=== PATIENT | male | born 1940 | race Caucasian/White ===

== ENCOUNTER 2017-02-28 12:21 | Inpatient (IN) | payer OTHER ==
[~2017-02-28] VITALS: Ht 177.8 cm; Wt 90.3 kg
[2017-02-28 12:59] LABS: ABSOLUTE BASOPHIL COUNT 0.1 /CUMM (0.0-0.2); ABSOLUTE EOSINOPHIL COUNT 0.2 /CUMM (0.0-0.7); ABSOLUTE GRANULOCYTE CT 4.1 /CUMM (1.4-6.5); ABSOLUTE MONOCYTE COUNT 0.5 /CUMM (0.10-0.60); GRANULOCYTE % 71.5 % (42.2-75.2); MEAN CORPUSCULAR HGB CONC 31.8 G/DL (33.0-37.0); MEAN PLATELET VOLUME 8.3 FL (7.4-10.4); PLATELET COUNT 263 /CUMM (130-400); RBC DISTRIBUTION WIDTH 19.4 % (11.5-14.5); RED BLOOD CELL CT 5.35 /CUMM (4.70-6.10); WHITE BLOOD CELL COUNT 5.8 /CUMM (4.8-10.8)
--- NOTE | 2017-02-28 15:59 | ED GENERAL ADULT ---
History of Present Illness General Chief Complaint: Dyspnea (COPD, CHF, Other) Stated Complaint: SOB/EDEMA X 2WEEKS/SENT BY PMD FOR ABNORMAL LABS Source: patient Exam Limitations: no limitations Vital Signs & Intake/Output Vital Signs & Intake/Output Vital Signs Date Time Temp Pulse Resp B/P B/P Pulse O2 O2 Flow FiO2 Mean Ox Delivery Rate 03/01 1126 Nasal 2.0L Cannula 03/01 1119 95 Nasal 2.0L Cannula 03/01 0800 97 Nasal 2.0L Cannula 03/01 0657 98.4 82 20 112/62 97 Nasal Cannula 03/01 0000 Nasal 2.0L Cannula 02/28 2200 95 Nasal 2.0L Cannula 02/28 2155 97.8 85 22 128/78 94 Nasal 2.0L Cannula 02/28 2128 97.9 69 16 136/79 98 Nasal 2.0L Cannula 02/28 1950 97.1 92 22 140/59 96 Nasal 2.0L Cannula 02/28 1628 88 Room Air 02/28 1609 96.5 101 18 170/89 93 Nasal 2.0L Cannula 02/28 1237 96.6 96 18 140/83 85 Room Air ED Intake and Output 03/01 0000 02/28 1200 Intake Total 460 Output Total 300 Balance 160 Intake, Oral 460 Output, Urine 300 Patient 202 lb Weight Allergies Coded Allergies: No Known Allergies (02/28/17) Triage Note: PT TO ER FOR EVAL OF ABNL CREATININE, BNP BY PCP. PER PATIENT HAS HAD WORSENING LOWER EXT EDEMA X 2 WEEKS. STATES SOB IS "BASELINE" FOR HIM. NO ACUTE SOB NOTED. RA SAT 85%. EKG COMPLETE. Triage Nurses Notes Reviewed? yes Onset: Gradual Duration: week(s): Timing: recent history Injury Environment: home Severity: moderate HPI: 76yo male with hx of CHF presents to ED complaining of dyspnea and pedal edema x weeks. Patient states that he is unable to sleep for the past several weeks which he believes unrelated to dyspnea. Patient has been taking Ambien for insomnia however states that this medication does not help. He went to see his primary care doctor for increased dose of Ambien and it was recommended by a RN at the office that he reported to the emergency department for abnormal labs that were taken as an outpatient. 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 He is currently on Lasix 80 mg twice a day. Patient reports improvement in the old edema recently. Patient denies chest pain, presyncope, syncope, headache, abdominal pain, nausea, vomiting, fevers. (Enriqueta Thomason) Past History Travel History Traveled to [place] past 21 day No Medical History Any Pertinent Medical History? see below for history Cardiovascular: CHF, hyperlipidemia Respiratory: COPD, PNEUMOTHROAX Musculoskeletal: gout Surgical History Surgical History: non-contributory Psychosocial History What is your primary language Bermudian Tobacco Use: Never used Family History Hx Contributory? No (Enriqueta Thomason) Review of Systems Review of Systems Constitutional: Reports: no symptoms. EENTM: Reports: no symptoms. Respiratory: Reports: see HPI. Cardiovascular: Reports: see HPI. GI: Reports: no symptoms. Genitourinary: Reports: no symptoms. Musculoskeletal: Reports: see HPI. Skin: Reports: no symptoms. Neurological/Psychological: Reports: see HPI. Hematologic/Endocrine: Reports: no symptoms. Immunologic/Allergic: Reports: no symptoms. All Other Systems: Reviewed and Negative (Enriqueta Thomason) Physical Exam Physical Exam General Appearance: well developed/nourished, no apparent distress, alert, awake Head: atraumatic, normal appearance Eyes: Bilateral: normal appearance. Ears, Nose, Throat: hearing grossly normal Neck: normal inspection, supple, full range of motion Respiratory: no respiratory distress, diminished breath sounds bilaterally Cardiovascular: regular rate/rhythm Peripheral Pulses: 2+ radial (R), 2+ radial (L) Gastrointestinal: normal bowel sounds, soft, non-tender, no organomegaly Back: normal inspection, normal range of motion Extremities: 3+ pitting edema bilateral lower extremities Neurologic/Psych: awake, alert, oriented x 3 Skin: intact, normal color, warm/dry Core Measures ACS in differential dx? Yes CVA/TIA Diagnosis: No Sepsis Present: No Sepsis Focused Exam Completed? No (Enriqueta Thomason) Progress Differential Diagnoses I considered the following diagnoses in my evaluation of the patient: [CHF exacerbation, COPD, pneumonia, bronchitis, influenza, edema, DVT, PE, acute coronary syndrome] Plan of Care: Orders Procedure Date/time Status Nothing by Mouth 03/01 B Active RT: Evaluation 03/01 1118 Active Nursing Misc 03/01 0800 Active Change service to 03/01 0736 Active PROTHROMBIN TIME 03/01 0600 Complete CBC WITHOUT DIFFERENTIAL 03/01 0600 Complete BASIC ELECTROLYTES PLUS BUN&CR 03/01 0600 Complete TROPONIN LEVEL 03/01 0300 Complete EKG 03/01 0300 Active US-EXT BILAT VENOUS DOPPLER 03/01 UNK Active US-COMPLETE ABDOMEN 03/01 UNK Active THERAPIST ORDERS 03/01 UNK Complete OXYGEN SETUP (GEN) 03/01 UNK Complete Admit to inpatient 03/01 UNK Active ECHOCARDIOGRAM 03/01 UNK Active Heart Healthy Diet 02/28 D Complete Pathway - chart 02/28 2201 Active House Staff 02/28 2200 Active Code Status 02/28 2200 Active TROPONIN LEVEL 02/28 213 Complete EKG 02/28 213 Active Vital Signs 02/29 2128 Active Teach/Educate 02/29 2128 Active Pain Treatment and Response 02/29 2128 Active Nutritional Intake, Monitor 02/29 2128 Active Isolation 02/29 2128 Active Intake & Output 02/29 2128 Active Patient Care Conference 02/29 2128 Active Activity/Ambulation 02/29 2128 Active Intake & Output 02/[address] in observation 02/29 2000 Active ED Holding Orders 02/29 2000 Active Vital Signs 02/29 2000 Active Patient Data 02/28 195 Active RAPID VIRAL INFLUENZA A 02/28 1814 Complete Add-on Test (ER Only) 02/28 1535 Active THYROID STIMULATING HORMONE 02/28 1246 Complete FREE T4 02/28 1246 Complete B-TYPE NATRIURETIC PEP (BNP) 02/28 1246 Complete TROPONIN LEVEL 02/28 1239 Complete COMPREHENSIVE METABOLIC PANEL 02/28 1239 Complete CBC WITHOUT DIFFERENTIAL 02/28 1239 Complete EKG 02/28 1224 Active TRC EVALUATION (GEN) 02/28 UNK Complete Lab Add-on Test 02/28 UNK Active Weight 02/28 UNK Active VTE Mechanical Prophylaxis 02/28 UNK Active Intake & Output 02/28 UNK Active Elevate 02/28 UNK Active Activity/Ambulation 02/28 UNK Active Current Medications Sig/Bridger Start time Last Medication Dose Stop Time Status Admin Albuterol Sulfate 3 ML BID 03/01 2200 AC 03/01 (Proventil) 1117 Ipratropium [place] 2.5 ML BID 03/01 2200 AC 03/01 (Atrovent) 1118 Atorvastatin Calcium 20 MG 1700 03/01 1700 AC (Lipitor) Potassium Chloride 40 MEQ BID 03/01 1053 AC (K-Dur) 03/01 220 Enoxaparin Sodium 40 MG DAILY 03/01 1000 CAN (Lovenox) Furosemide 40 MG 7:30 AM, & 4:30 PM 03/01 0730 AC 03/01 (Lasix) 0804 Levothyroxine Sodium 0.075 MG DAILY AC 03/01 0700 AC 03/01 (Synthroid) 0613 Budesonide/ 2 PUF BID 02/28 2199 AC 03/01 Formoterol Fumarate 0815 (SYMBICORT) Zolpidem Tartrate 5 MG AT BEDTIME 02/28 2199 AC 02/28 (Ambien) 232 Ipratropium [place] 2.5 ML Q6-PRN PRN 02/29 2144 AC (Atrovent) Trazodone HCl 50 MG AT BEDTIME NEED.. 02/29 2144 AC (Desyrel) Laboratory Tests 03/01/17 0400: Troponin I 0.06 03/01/17 0400: Anion Gap 13, Estimated GFR 59 L, BUN/Creatinine Ratio 25.8 H, PT 14.3 H, INR 1.37 H, CBC w Diff NO MAN DIFF REQ, RBC 4.89, MCV 87.1, MCH 27.9, RDW 18.8 H, MPV 8.5, Gran % 70.4, Lymphocytes % 15.2 L, Monocytes % 10.9 H, Eosinophils % 2.9, Basophils % 0.6, Absolute Granulocytes 3.7, Absolute Lymphocytes 0.8 L, Absolute Monocytes 0.6, Absolute Eosinophils 0.2, Absolute Basophils 0, PUBS MCHC 32.0 L 02/28/17 2210: Troponin I 0.06 02/28/17 1246: Anion Gap 11, Estimated GFR 45 L, BUN/Creatinine Ratio 22.7, Glucose 126 H, Calcium 9.5, Total Bilirubin 1.6 H, AST 31, ALT 31, Alkaline Phosphatase 109, Troponin I 0.05, Opo-V-Rjcsjeijali Pept 6730 H, Total Protein 6.8, Albumin 3.9, Globulin 2.9, Albumin/Globulin Ratio 1.3, TSH 3.350, Free T4 1.64, CBC w Diff NO MAN DIFF REQ, RBC 5.35, MCV 88.0, MCH 28.0, RDW 19.4 H, MPV 8.3, Gran % 71.5, Lymphocytes % 16.5 L, Monocytes % 8.0, Eosinophils % 3.0, Basophils % 1.0, Absolute Granulocytes 4.1, Absolute Lymphocytes 1.0 L, Absolute Monocytes 0.5, Absolute Eosinophils 0.2, Absolute Basophils 0.1, PUBS MCHC 31.8 L Microbiology 02/28 2029 NASOPHARYN: Influenza Virus A & B Rapid Smear - COMP CXR with mild pulmonary congestion. Patient with low O2 saturation ON room air, 87% while at rest. Patient likely with acute on chronic CHF. Patient medicated with 40 mg IV Lasix. This patient was discussed with case management. It was recommended to start his observation given his insurance. The patient was discussed with Dr. Vargas regarding telemetry observation. The patient was discussed with Dr. Slater who agrees with the plan. Diagnostic Imaging: Viewed by Me: Radiology Read. Discussed w/RAD: Radiology Read. CXR Impression: PATIENT: MONALISA ARENAS PRESENT AGE : 76 PATIENT ACCOUNT NO: [id number] : 39 LOCATION: [facility] ORDERING PHYSICIAN: Enriqueta OQUENDO SERVICE DATE: 02/28/17 EXAM TYPE: RAD - XRY-CHEST XRAY, TWO VIEWS EXAMINATION: XR CHEST, 2 VIEWS CLINICAL INFORMATION: Dyspnea. Elevated BNP. Assess for CHF, effusion. COMPARISON: None. TECHNIQUE: PA and lateral views of the chest were obtained. FINDINGS: Thoracic aorta is unremarkable. Mild pulmonary venous congestion. No pulmonary edema. There is distortion of the normal contour of the diaphragm with juxtaphrenic peaking, potentially due to chronic changes of COPD or pleural parenchymal scarring. Blunting of the posterior costophrenic sulci may be due to trace effusions are associated scarring. No large effusions. No pneumothorax. No focal consolidation. Mild degenerative disc disease present in the thoracic spine. There is mild degenerative arthritis in the acromioclavicular and glenohumeral joints. IMPRESSION: Borderline cardiomegaly with mild pulmonary venous congestion. No pulmonary edema. Flattened diaphragm with a distorted contour, potentially due to COPD or pleural parenchymal scarring. Blunting of the posterolateral costophrenic sulci could be due to trace effusions or chronic pleural parenchymal scarring. The latter is favored given the appearance of the remainder of the diaphragm. DICTATED BY: Jose Raul Ramos MD DATE/TIME DICTATED:1699 POWERHOUSE TENDER:MARCELLA DATE/TIME TRANSCRIBED:02/28/171699 CONFIDENTIAL, DO NOT COPY WITHOUT APPROPRIATE AUTHORIZATION. <Electronically signed in Other Vendor System> SIGNED BY: Jose Raul Ramos MD 02/28/171706 Initial ED EKG: sinus rhythm @77bpm, PVC, first degree AV block, nonspecific ST changes (Enriqueta Thomason) Departure Departure Disposition: STILL A PATIENT Condition: Stable Clinical Impression Primary Impression: Acute on chronic congestive heart failure Qualifiers: Congestive heart failure type: unspecified congestive heart failure type Qualified Code: I50.9 - Heart failure, unspecified Secondary Impressions: Dyspnea Qualifiers: Dyspnea type: dyspnea on exertion Qualified Code: R06.09 - Other forms of dyspnea Pedal edema Referrals: Adalberto Tafoya MD (PCP/Family) Departure Forms: Customer Survey General Discharge Information Observation Note Spoke With: aJy Vargas MD Physician Advisor Notified: DIANA HARRIS DO Place Patient In: Non-ED OBS Care Area Rationale for Observation: My rational for observation is as follows [acute on chronic congestive heart failure requiring IV Lasix, cardiology consult, telemetry monitoring, Trend labs and EKGs, premature discharge would be medically unsafe.]. (Enriqueta Thomason) PA/DEPUTY GENERAL COUNSEL Co-Sign Statement Statement: ED Attending supervision documentation- [X] I saw and evaluated the patient. I have also reviewed all the pertinent lab results and diagnostic results. I agree with the findings and the plan of care as documented in the PA's/DEPUTY GENERAL COUNSEL's documentation. [X] I have reviewed the ED Record and agree with the PA's/DEPUTY GENERAL COUNSEL's documentation. [] Additions or exceptions (if any) to the PAs/DEPUTY GENERAL COUNSEL's note and plan are summarized below: [] (Bryon EPPS,Almaz) Critical Care Note Critical Care Note Critical Care Time: non-applicable (Enriqueta Thomason)
--- NOTE | 2017-02-28 17:07 | RADIOLOGY REPORT ---
EXAMINATION: XR CHEST, 2 VIEWS CLINICAL INFORMATION: Dyspnea. Elevated BNP. Assess for CHF, effusion. COMPARISON: None. TECHNIQUE: PA and lateral views of the chest were obtained. FINDINGS: Thoracic aorta is unremarkable. Mild pulmonary venous congestion. No pulmonary edema. There is distortion of the normal contour of the diaphragm with juxtaphrenic peaking, potentially due to chronic changes of COPD or pleural parenchymal scarring. Blunting of the posterior costophrenic sulci may be due to trace effusions are associated scarring. No large effusions. No pneumothorax. No focal consolidation. Mild degenerative disc disease present in the thoracic spine. There is mild degenerative arthritis in the acromioclavicular and glenohumeral joints. IMPRESSION: Borderline cardiomegaly with mild pulmonary venous congestion. No pulmonary edema. Flattened diaphragm with a distorted contour, potentially due to COPD or pleural parenchymal scarring. Blunting of the posterolateral costophrenic sulci could be due to trace effusions or chronic pleural parenchymal scarring. The latter is favored given the appearance of the remainder of the diaphragm.
--- NOTE | 2017-02-28 21:29 | History & Physical ---
Jack EPPS,[facility] 02/28/178: General Information and HPI MD Statement: I have seen and personally examined MONALISA ARENAS and documented this H&P. The patient is a 76 year old M who presented with a patient stated chief complaint of [worsening leg edema]. Source of Information: patient Exam Limitations: no limitations History of Present Illness: Mr. Arenas is a 76-year-old gentleman with past medical history significant for CHF, COPD(not on home oxygen), gout, hyperlipidemia, hypothyroidism and lung tumor status post resection(in 1999) was sent in by his PCP for worsening leg edema and abnormal lab results. According to the patient, he has had bilateral lower extremity edema(limited to the ankles) with past couple of years for which she has been taking Lasix. 3 weeks ago he noticed worsening and spreading of his lower extremity edema up his legs up to the pelvic area and abdomen. Dr. Tafoya, increased the dose of Lasix from 1 to 3 tablets twice a day (unsure about the dose) with some improvement in the edema. He went to see his to his PCP today to refill Ambien that he takes for insomnia, blood workup was done at the office and he was told to come to the ER course of increased BNP, concerning for CHF exacerbation. The patient has baseline shortness of breath and has very limited baseline activity, denies any worsening shortness of breath, chest pain palpitations, orthopnea, PND, weight gain, or any recent change in medication other than Lasix. He does not follow up with any government professor or emr trainer. States he had some stress test done 6 months ago suggested by his PCP. Allergies/Medications Allergies: Coded Allergies: No Known Allergies (02/28/17) Past History Travel History Traveled to [place] past 21 day No Medical History Cardiovascular: CHF, hyperlipidemia Respiratory: COPD, PNEUMOTHROAX Musculoskeletal: gout Endocrine: hypothyroidism Surgical History Surgical History: Lung Tumor resection(1999) Past Family/Social History Psychosocial History Where do you live? Home Who Do You Live With? self Services at Home: None Smoking Status: Former Smoker ETOH Use: occasional use Illicit Drug Use: denies illicit drug use Functional Ability ADLs Independent: dressing, eating, toileting, bathing. Ambulation: independent IADLs Independent: shopping, housework, finances, food prep, telephone, transportation , medication admin. Review of Systems Review of Systems Constitutional: Reports: no symptoms. EENTM: Reports: no symptoms. Cardiovascular: Reports: peripheral edema. Respiratory: Reports: short of breath. GI: Reports: no symptoms. Genitourinary: Reports: no symptoms. Musculoskeletal: Reports: no symptoms. Skin: Reports: no symptoms. Neurological/Psychological: Reports: no symptoms. Hematologic/Endocrine: Reports: no symptoms. Immunologic/Allergic: Reports: no symptoms. All Other Systems: Reviewed and Negative Exam & Diagnostic Data Last 24 Hrs of Vital Signs/I&O Vital Signs Date Time Temp Pulse Resp B/P B/P Pulse O2 O2 Flow FiO2 Mean Ox Delivery Rate 03/01 0000 Nasal 2.0L Cannula 02/28 2200 95 Nasal 2.0L Cannula 02/28 2155 97.8 85 22 128/78 94 Nasal 2.0L Cannula 02/28 2128 97.9 69 16 136/79 98 Nasal 2.0L Cannula 02/28 1950 97.1 92 22 140/59 96 Nasal 2.0L Cannula 02/28 1628 88 Room Air 02/28 1609 96.5 101 18 170/89 93 Nasal 2.0L Cannula 02/28 1237 96.6 96 18 140/83 85 Room Air Intake & Output 03/01 0800 03/01 0000 02/28 1600 Intake Total 460 Output Total 300 Balance 160 Intake, Oral 460 Output, Urine 300 Patient 202 lb 202 lb Weight Physical Exam General Appearance Alert, Oriented X3, Cooperative, No Acute Distress Skin No Rashes, No Breakdown HEENT Atraumatic, PERRLA, EOMI Neck Supple, No JVD, No thryomegaly Cardiovascular Regular Rate, Normal S1, Normal S2, No Murmurs Lungs Clear to Auscultation, decreased air movement bilaterally Abdomen Normal Bowel Sounds, Soft, No Tenderness, distended, pitting edema in pelvic area Neurological Normal Speech, Strength at 5/5 X4 Ext, Normal Tone, Sensation Intact Extremities No Clubbing, No Cyanosis, Normal Pulses, +2 pitting edema bialterally extending up the legs upto pelvic and lower abdominal area Last 24 Hrs of Labs/Manuel: Laboratory Tests 02/28/17 2210: Troponin I 0.06 02/28/17 1246: Anion Gap 11, Estimated GFR 45 L, BUN/Creatinine Ratio 22.7, Glucose 126 H, Calcium 9.5, Total Bilirubin 1.6 H, AST 31, ALT 31, Alkaline Phosphatase 109, Troponin I 0.05, Nxm-D-Muzstjntcle Pept 6730 H, Total Protein 6.8, Albumin 3.9, Globulin 2.9, Albumin/Globulin Ratio 1.3, TSH 3.350, Free T4 1.64, CBC w Diff NO MAN DIFF REQ, RBC 5.35, MCV 88.0, MCH 28.0, RDW 19.4 H, MPV 8.3, Gran % 71.5, Lymphocytes % 16.5 L, Monocytes % 8.0, Eosinophils % 3.0, Basophils % 1.0, Absolute Granulocytes 4.1, Absolute Lymphocytes 1.0 L, Absolute Monocytes 0.5, Absolute Eosinophils 0.2, Absolute Basophils 0.1, PUBS MCHC 31.8 L Microbiology 02/28 2029 NASOPHARYN: Influenza Virus A & B Rapid Smear - COMP Diagnostic Data EKG Results Normal sinus rhythm with first-degree AV block and right bundle branch block, notched P-waves. Heart rate 93 QTC 498 CXR Results IMPRESSION: Borderline cardiomegaly with mild pulmonary venous congestion. No pulmonary edema. Flattened diaphragm with a distorted contour, potentially due to COPD or pleural parenchymal scarring. Blunting of the posterolateral costophrenic sulci could be due to trace effusions or chronic pleural parenchymal scarring. The latter is favored given the appearance of the remainder of the diaphragm. Other Results CT CHEST WO IV CONTRAST IMPRESSION: 1. No acute abnormality. 2. Severe henley emphysematous changes of lungs. 3. Small dependent left pleural effusion. 4. Cirrhosis of liver with abdominal ascites. Assessment/Plan Assessment: Mr. Arenas is a 76-year-old gentleman with past medical history significant for CHF, COPD(not on home oxygen), gout, hyperlipidemia, hypothyroidism and lung tumor status post resection(in 1999) was sent in by his PCP for worsening leg edema and abnormal lab results. A/P; 1. Suspected Rigth sided Heart Failure; - We will Observe the patient on telemetry floor for 24-48 hours. - Start on IV Lasix 40 mg twice a day. - Strict I's and O's - Daily weights - Cardiology consult. - Initial troponins and EKG were negative. Trops and EKG 2 to rule out ACS. - Bilateral lower extremity Doppler to rule out DVT 2. COPD exacerbation -Patient has baseline exertional shortness of breath, does not follow-up with any emr trainer and only uses Spiriva inhaler 1 puff per day prescribed by his PCP. - CT without contrast Severe henley emphysematous changes of lungs and Small dependent left pleural effusion. - Pulmonology consult - [facility] nebs - Supplemental oxygen as needed 3. Cirrhosis of liver with abdominal ascites; found on chest CT. - Total bilirubin is elevated to 1.6. - GI consult 4. Hypothyroidism - Continue levothyroxine 75 MCG daily - Follow TSH and free T4 levels 5. Gout and hyperlipidemia - Continue home medications. DVT prophylaxis; subcutaneous Lovenox Patient is full code As Ranked By This Provider Problem List: 1. Acute on chronic congestive heart failure Qualifiers Congestive heart failure type: unspecified congestive heart failure type Qualified Code: I50.9 - Heart failure, unspecified 2. Dyspnea Qualifiers Dyspnea type: dyspnea on exertion Qualified Code: R06.09 - Other forms of dyspnea 3. Pedal edema Core Measures/Misc (10/30) Acute Coronary Syndrome ACS Diagnosis: No Congestive Heart Failure Congestive Heart Failure Diagnosis No Cerebrovascular Accident CVA/TIA Diagnosis: No VTE (View Protocol) VTE Risk Factors Age>40 No Mechanical VTE Prophylaxis d/t N/A MechProphylax Ordered No VTE Pharm Prophylaxis d/t NA PharmProphylax ordered Sepsis (View protocol) Sepsis Present: No Adrian Cintron 02/28/17 2158: Resident Review Statement Resident Statement: examined this patient, discussed with music industry intern, agreed with music industry intern, discussed with family, reviewed EMR data (avail), discussed with nursing , discussed with case mgmt, reviewed images, amended to note Other Findings: 76-year-old gentleman former heavy smoker ( 60 PPD; quit 2018 years ago) was sent in by his PCP for abnormal labs ( elevated ProBNP and Cr). Past medical history: Lung cancer status post lobectomy in 1999, history of chronic bilateral lower extremity swelling on Lasix, hyperlipidemia, and insomnia. Patient has history of chronic bilateral leg swelling on Lasix (60 mg by mouth twice a day), which was increased to 80 mg twice a day, about 3 weeks ago due to increasing bilateral swelling that progress to his genitalia and lower abdomen which was not coupled with chest pain, palpitation. After increasing dose of Lasix swelling of bilateral lower extremity decreased. Yesterday, patient followed up with his PCP office for management of his insomnia, when he was told about his abnormal lab findings and he was recommended to come to the emergency room. Of note, patient has a long standing history of shortness of breath. Lives alone, and due to his shortness of breath has limited his physical activity. According to patient shortness of breath has deteriorated over the past few years but there has been no sudden no change. Patient denies any: Recent weight gain, orthopnea, increasing number of pillow, lightheadedness, dizziness. Vital signs are stable; initially in the triads patient was saturating 85% in room air which was corrected by 2 L of nasal cannula. Review of system: HPI; except for his insomnia he has no other new complaints/ concerns. Physical exam: GA: Mild distress; head and neck: Mucous membranes are moist, ?? JVD; heart: S1-S2 no murmur; abdomen is soft; bilateral lower extremity edema involving scrotum up to level of umbilicus. Labs: Sodium 148, potassium 3.8, bicarbonate 40, BUN 34, creatinine 1.5. Bilirubin 1.5, LFTs within normal limits ProBNP 6730 Chest x-ray: Flattening of the diaphragmatic and blunting of the costophrenic angle. CT scan of the chest without IV contrast: 1. No acute abnormality.2. Severe henley emphysematous changes of lungs. 3. Small dependent left pleural effusion. 4. Cirrhosis of liver with abdominal ascites. Assessment and plan 76-year-old gentleman with significant smoking history indicated of severe COPD/ right heart failure and chronic leg swelling was admitted for assessment of his bilateral edema. List of active problems #1 dyspnea on exertion and hypoxic respiratory failure. #2 henley emphysematous changes of lungs #3 chronic renal function impairment #4 hypothyroidism #5 elevated Bili and newly diagnosed cirrhosis in CT w/ ascites Plan * Admit to telemetry for continuous heart monitoring * Obtain echo in the a.m. * Strict ins and outs; less than 2 g a day sodium * Daily weights * Leg elevation * IV Lasix 40 mg twice a day * Trending troponin and EKG rule out ACS at 9 PM and 3 AM * Check TSH and free T4 * Continue home dose of levothyroxine * Continue home dose of simvastatin * Obtain echo in the a.m. * Obtain cardiology consult in the a.m. * Obtain CT scan of the chest without IV contrast assessing for restrictive and obstructive pulmonary disease pleural effusion and alveolar edema * TRC Neb [id number] as needed * Oxygen set up titrated 90-92% O2 sats * Symbicort 2 puffs twice a day * Ambien 5 mg at bedtime for insomnia * Trazodone 50 mg at bedtime for insomnia * Obtain pulmonology consult in the a.m. * Obtain abdominal ultrasound in the a.m.-assessment of ascites * Obtain GI consult in the am * Possible diagnostic paracentesis * NPO Full code ALPS- anticipation for paracentesis Housekeeping orders Jay Vargas 03/01/17 0452: Attending MD Review Statement Attending Statement Attending MD Statement: examined this patient, discuss w/resident/PA/REPRODUCTION PRODUCTION MANAGER, agreed w/resident/PA/REPRODUCTION PRODUCTION MANAGER, reviewed EMR data (avail), reviewed images, amended to note Attending Assessment/Plan: Cc: leg swelling, abnormal labs PMH: CHF, HLD, COPD, gout, hypothyroidism, right ? Lobectomy Patient was sent from primary care office for abnormal labs. Patient's main concern is not being able to sleep, he is been having this insomnia since last couple of years, tried different medications including OTC meds, described Ambien without much relief. Patient states that he just keeps tossing and turning in the bed and cannot sleep and sees watch every 2 hours. His daily activity has been limited since "a while" because of dyspnea on exertion. He is cautious and limited in his activities, he also started to notice bilateral lower extremity swelling since last 2 years, but worsened since last month or so , his Lasix dose was increased, the swelling improved but did not completely resolve. Patient denies any PND or orthopnea but unable to assess as he does not sleep. Currently he denies shortness of breath at rest but has been getting progressively more and more dyspnea on exertion. Denies any chest pain, palpitations, lost significant amount of weight after increasing the Lasix dose. He was being reevaluated today and primary care's office where he was found to have persistently elevated creatinine, increased leg swelling so was suggested to go to ER. Vitals: T 96.6, pulse 96, RR 18, blood pressure 140/83, saturating 85% on room air improved to 93% on 2 L nasal cannula. On exam: A O 3, cooperative, no acute distress, neck supple, JVD ? Distended but difficult to assess, no lymphadenopathy, mucosa moist, no focal neurological deficit, +2 edema bilateral lower extremity, scrotal edema, no obvious skin rashes or inflammation CVS: S1-S2, RRR. RS: Markedly decrease in air entry, no obvious wheezing or crackles. Abdomen: Soft, NT, ND, bowel sounds present. Labs: WBC 5.8K, hemoglobin 14.9, hematocrit 47.0, platelet 263, sodium 148, potassium 3.8, chloride 97, bicarbonate 40, BUN 34, creatinine 1.5, glucose 126, calcium 9.5, bilirubin 1.6, LFT unremarkable, troponin 0.05, BNP 6730, rapid influenza negative CXR: Borderline cardiomegaly with mild pulmonary venous congestion. No pulmonary edema. Flattened diaphragm with a distorted contour, potentially due to COPD or pleural parenchymal scarring. Blunting of the posterolateral costophrenic sulci could be due to trace effusions or chronic pleural parenchymal scarring. The latter is favored given the appearance of the remainder of the diaphragm. Assessment and plan 76-year-old male with past medical history significant for ?CHF, HLD, COPD, gout , hypothyroidism, right ?Lobectomy presented in ER for abnormal labs done in primary care physician's office and persistent lower extremity swelling. Patient has been getting progressive worsening of dyspnea on exertion but denies any shortness of breath at rest, no PND or orthopnea, his Lasix dose was increased during last 1 month which actually helped in his legs swelling, he lost 6 pounds of weight. Other than dyspnea on exertion and leg swelling patient has main concern of insomnia which is difficult to address. He may have mildly distended JVD, significant leg edema, and markedly decreased air entry bilaterally without any obvious wheezing or crackles. He was significantly desaturating to 85% on room air while in ER without much symptoms. It is possible that patient may have worsening COPD causing hypoxia and right-sided heart failure. But his extensive medical problems and smoking history left-sided heart failure should be ruled out. He may have chronic kidney disease as his creatinine is around the same value since a month or so, previous available was in 2013 which is 1.3. His sodium also appears chronically elevated, has elevated bicarbonate since long, probably either secondary to volume contraction with Lasix or compensation for his COPD CO2 retention. + COPD exacerbation + Suspected heart failure + History of HLD, COPD, gout, hypothyroidism, right ? Lobectomy - Place in observation on telemetry - Continuous telemetry monitoring - Try to wean off oxygen - IV Lasix 40 mg twice a day - Strict I's and O's - Daily weights - Serial troponin and EKGs - 2-D echo in a.m. - Cardiology consult in a.m. - DVT prophylaxis - TRC nebs - Pulmonology consult - CT chest without contrast - Obtain records from PCP office - Check TSH
[2017-02-28 21:55] VITALS: BP 128/78
--- NOTE | 2017-02-28 22:59 | CT SCAN REPORT ---
EXAMINATION: CT CHEST WITHOUT CONTRAST CLINICAL INFORMATION: No destructive lung disease. COPD. CHF. Shortness of breath. COMPARISON: Chest x-ray 02/28/2017 TECHNIQUE: Multidetector volumetric CT imaging of the chest was done. Axial MIP volume rendering provided. Sagittal and coronal reformatted images were obtained. DLP: 326.02 mGy-cm FINDINGS: LUNGS: Severe henley emphysematous changes of lung. No infiltrate. Central bronchial airways are open. MEDIASTINUM: There are vascular wall calcifications of aorta. No aneurysm of the aorta. No mediastinal mass or significant lymphadenopathy. No pericardial effusion. PLEURA: Small dependent left pleural effusion. AXILLA: No lymphadenopathy. UPPER ABDOMEN: Cirrhosis of liver. There is a small volume of abdominal ascites at the upper abdomen. Fatty atrophy of the pancreas. The adrenal glands are normal. OSSEOUS STRUCTURES: Degenerative spondylosis of spine with multilevel endplate spurring of the vertebrae. IMPRESSION: 1. No acute abnormality. 2. Severe henley emphysematous changes of lungs. 3. Small dependent left pleural effusion. 4. Cirrhosis of liver with abdominal ascites.
[2017-03-01 04:49] LABS: ABSOLUTE BASOPHIL COUNT 0 /CUMM (0.0-0.2); ABSOLUTE EOSINOPHIL COUNT 0.2 /CUMM (0.0-0.7); ABSOLUTE GRANULOCYTE CT 3.7 /CUMM (1.4-6.5); ABSOLUTE LYMPH COUNT 0.8 /CUMM (1.2-3.4); ABSOLUTE MONOCYTE COUNT 0.6 /CUMM (0.10-0.60); BASOPHIL % 0.6 % (0.0-2.0); EOSINOPHIL % 2.9 % (0-5); GRANULOCYTE % 70.4 % (42.2-75.2); HEMATOCRIT 42.6 % (42-52); MEAN CORPUSCULAR HGB 27.9 PG (27.0-31.0); MEAN CORPUSCULAR VOLUME 87.1 FL (80.0-94.0); MEAN PLATELET VOLUME 8.5 FL (7.4-10.4); PLATELET COUNT 250 /CUMM (130-400); RBC DISTRIBUTION WIDTH 18.8 % (11.5-14.5); RED BLOOD CELL CT 4.89 /CUMM (4.70-6.10); WHITE BLOOD CELL COUNT 5.3 /CUMM (4.8-10.8)
[2017-03-01 04:54] LABS: PT 14.3 SEC (9.4-12.5)
[2017-03-01 06:57] VITALS: BP 112/62
--- NOTE | 2017-03-01 07:32 | PN- Housestaff ---
Iza Valentine 03/01/17 0732: Subjective Follow-up For: Worsening lower extremity edema Hepatic cirrhosis/ascites Suspected CHF exacerbation Complaints: no complaints Tele-Events Since Last Visit: No significant telemetry events Subjective: Patient was seen and examined this morning. He was lying comfortably without any significant complaints. He has bilateral lower extremity edema which he is admitting that admits and therefore couple of weeks for which his home dose of Lasix was increased from 1 tablet daily to 6 tablets daily by his PCP. He remained hemodynamically stable but requiring supplemental oxygen to keep oxygen saturation more than 90%. Review of Systems Constitutional: Denies: chills, diaphoresis, fever. EENTM: Denies: blurred vision, visual changes. Cardiovascular: Denies: chest pain, edema, orthopena. Respiratory: Reports: short of breath. Gastrointestinal: Denies: constipation, diarrhea. Genitourinary: Denies: dysuria, frequency. Musculoskeletal: Denies: gout, joint pain. Skin: Reports: see HPI. Objective Last 24 Hrs of Vital Signs/I&O Vital Signs Date Time Temp Pulse Resp B/P B/P Pulse O2 O2 Flow FiO2 Mean Ox Delivery Rate 03/01 1126 Nasal 2.0L Cannula 03/01 1119 95 Nasal 2.0L Cannula 03/01 0800 97 Nasal 2.0L Cannula 03/01 0657 98.4 82 20 112/62 97 Nasal Cannula 03/01 0000 Nasal 2.0L Cannula 02/28 2200 95 Nasal 2.0L Cannula 02/28 2155 97.8 85 22 128/78 94 Nasal 2.0L Cannula 02/28 2128 97.9 69 16 136/79 98 Nasal 2.0L Cannula 02/28 1950 97.1 92 22 140/59 96 Nasal 2.0L Cannula 02/28 1628 88 Room Air 02/28 1609 96.5 101 18 170/89 93 Nasal 2.0L Cannula Intake & Output 03/01 1600 03/01 0800 03/01 0000 Intake Total 480 460 Output Total 875 300 Balance -395 160 Intake, Oral 480 460 Number 0 Bowel Movements Output, Urine 875 300 Patient 202 lb Weight Physical Exam General Appearance: Alert, Oriented X3, Cooperative, No Acute Distress Cardiovascular: Regular Rate, Normal S1, Normal S2 Lungs: Normal Air Movement Abdomen: Soft, No Tenderness, No Hepatospenomegaly Neurological: Normal Speech, Strength at 5/5 X4 Ext, Normal Tone Current Medications: Current Medications Sig/Bridger Start time Last Medication Dose Route Stop Time Status Admin Albuterol Sulfate 3 ML BID 03/01 2200 03/01 INH 1117 Albuterol Sulfate 2 PUF Q4 02/28 220 ME 03/01 INH 0415 Aspirin 81 MG DAILY 02/28 214 ME 02/28 PO 2322 Atorvastatin Calcium 20 MG 1700 03/01 1700 AC PO Budesonide/ 2 PUF BID 02/28 220 03/01 Formoterol Fumarate INH 0815 Enoxaparin Sodium 40 MG DAILY 03/01 1000 CAN SC Furosemide 40 MG 7:30 AM, & 4:30 PM 03/01 0730 DC 03/01 IV 0804 Furosemide 40 MG ONCE ONE 02/29 2144 ME 02/28 IV 02/28 2145 232 Furosemide 0 .STK-MED ONE 02/28 1846 DC IV Furosemide 40 MG ONCE ONE 02/28 1830 ME 02/28 IV 02/28 1831 1930 Ipratropium [place] 2.5 ML BID 03/01 2199 03/01 INH 1118 Ipratropium [place] 2.5 ML Q6-PRN PRN 02/29 2144 AC INH Levothyroxine Sodium 0.075 MG DAILY AC 03/01 0700 03/01 PO 0613 Potassium Chloride 40 MEQ BID 03/01 1053 AC PO 03/01 220 Trazodone HCl 50 MG AT BEDTIME NEED.. 02/29 2144 PO Zolpidem Tartrate 5 MG AT BEDTIME 02/28 2199 02/28 PO 2322 Last 24 Hrs of Lab/Manuel Results Last 24 Hrs of Labs/Mics: Laboratory Tests 03/01/17 0400: Troponin I 0.06 03/01/17 0400: Anion Gap 13, Estimated GFR 59 L, BUN/Creatinine Ratio 25.8 H, PT 14.3 H, INR 1.37 H, CBC w Diff NO MAN DIFF REQ, RBC 4.89, MCV 87.1, MCH 27.9, RDW 18.8 H, MPV 8.5, Gran % 70.4, Lymphocytes % 15.2 L, Monocytes % 10.9 H, Eosinophils % 2.9, Basophils % 0.6, Absolute Granulocytes 3.7, Absolute Lymphocytes 0.8 L, Absolute Monocytes 0.6, Absolute Eosinophils 0.2, Absolute Basophils 0, PUBS MCHC 32.0 L 02/28/17 2210: Troponin I 0.06 Microbiology 02/28 2029 NASOPHARYN: Influenza Virus A & B Rapid Smear - COMP Assessment/Plan Assessment: Patient is 76 year old gentleman with past medical history significant for congestive heart failure, COPD not on home oxygen, history of gout and hyperlipidemia, hypothyroidism and lung tumor status post resection in 1999 came in with chief complaint of worsening lower extremity edema and abnormal labs most likely hypernatremia and hypokalemia. Patient was admitted on telemetry floor and we will address following problems. Problem #1 worsening bilateral lower extremity edema which could be multifactorial due to his underlying CHF and also his hepatic cirrhosis might be playing a role. * Cardiology consultation was placed and appreciated * We will do echocardiogram and patient to check for the ejection fraction, any valvular abnormality or any wall motion abnormalities. * Given his hypernatremia which could be due to high dose of Lasix at home we would hold on further IV diuresis and will wait for the echocardiogram results and will resume if needed or we might change it to Aldactone given hypokalemia. * Supplemental oxygen to keep oxygen saturation more than 90% * Bilateral lower extremity Doppler ultrasound is pending to rule out DVT . Problem #2 history of COPD and lung tumor status post right ?lobectomy. * We'll continue supplemental oxygen Problem #3 chronic issues, hyperlipidemia, gout, hypothyroidism and insomnia * We will continue his home medications Problem #4 liver cirrhosis and ascites on CT abdomen * We will wait for GI evaluation. We will check hepatitis panel given his cirrhosis and ascites. He has remote history of alcohol abuse but has not drank in last more than 30 years. * Results of right upper quadrant ultrasound is still pending. Problem List: 1. Acute on chronic congestive heart failure 2. Dyspnea 3. Bilateral lower extremity edema Pain Ratin Pain Location: na Pain Goal: Remain pain free Pain Plan: tylenol Tomorrow's Labs & Rationales: cbc and bep Nicole EPPS,Nahid 03/01/17 1606: Attending Review Statement Attending Statement Attending Statement: examined this patient, discuss w/resident/[facility], agreed w/resident/[facility], reviewed EMR data (avail), discussed with nursing, discussed with case mgmt, amended to note Attending Assessment/Plan: Patient seen and examined. Resting comfortably and not in acute distress. Patient reports she was sent in for evaluation by his primary care provider due to abnormal lab values. He was noted to be hyponatremic on presentation. According to the patient has been having progressively worsening leg swelling despite escalating dose of Lasix at home. Lower extremity Dopplers were obtained here revealed deep vein thrombosis. He does admit to shortness of breath but states that it is chronic and unchanged. Echocardiogram done today shows normal ejection fraction. He does have elevated pulmonary pressures. He also has severe right ventricular systolic dysfunction. Right upper quadrant sonogram shows hepatic echotexture suggestive of chronic hepatocellular disease consistent with cirrhosis. Problems: 1. Worsening lower extremity swelling secondary to deep vein thrombosis. 2. Heart failure with preserved ejection fraction. 3. Hypernatremia; probably secondary to overdiuresis from Lasix 4. COPD; no evidence of broncho-spasm present. Plan: -Begin full dose anticoagulation therapy with Lovenox. -Recommend holding Lasix for now and reevaluating serum chemistry tomorrow before proceeding. His lower extremity swelling appears to be secondary to his deep vein thrombosis. Respiratory status is stable, to the patient. Chest x- ray shows no evidence of pulmonary edema. -Continue bronchodilator therapy. No need for systemic steroid therapy at present.
--- NOTE | 2017-03-01 10:41 | Cons- Cardiology ---
General Information and HPI Consulting Request Date of Consult: 03/01/17 Requested By: Nahid Rivera MD Reason for Consult: Lower extremity edema Source of Information: patient, old records Exam Limitations: no limitations History of Present Illness: The patient is a 76-year-old gentleman with a past medical history of COPD, hyperlipidemia, hypothyroidism, prior lung tumor (resected in 1999) and questionable CHF (unclear type). He presents to our hospital with increasing lower extremity edema. The patient states noting increasing pedal edema confined to his ankles over the past several years. He has been placed on low-dose outpatient diuretics; however, over the past 4 weeks noted a significant increase in his lower extremity edema, proceeding to his thighs. There has been no concurrent chest pain nor palpitations. He describes mild exertional dyspnea, and describes performing approximately 4 METs of regular activity; however, without regular exercise. The patient otherwise denied recent changes in his dietary intake or medication regimen. Given the significant increase in pedal edema, the patient's dose of diuretic was increased; however, without significant improvement. Allergies/Medications Allergies: Coded Allergies: No Known Allergies (02/28/17) Current Medications: Current Medications Sig/Bridger Start time Last Medication Dose Route Stop Time Status Admin Albuterol Sulfate 2 PUF Q4 02/28 2200 03/01 INH 0415 Aspirin 81 MG DAILY 02/28 214 DC 02/28 PO 2322 Atorvastatin Calcium 20 MG 1700 03/01 1700 AC PO Budesonide/ 2 PUF BID 02/28 2200 03/01 Formoterol Fumarate INH 0815 Enoxaparin Sodium 40 MG DAILY 03/01 1000 CAN SC Furosemide 40 MG 7:30 AM, & 4:30 PM 03/01 0730 03/01 IV 0804 Furosemide 40 MG ONCE ONE 02/29 2144 DC 02/28 IV 02/28 214 2322 Furosemide 0 .STK-MED ONE 02/28 1846 DC IV Furosemide 40 MG ONCE ONE 02/28 1830 DC 02/28 IV 02/28 1831 1930 Ipratropium [place] 2.5 ML Q6-PRN PRN 02/29 2144 AC INH Levothyroxine Sodium 0.075 MG DAILY AC 03/01 0700 03/01 PO 0613 Trazodone HCl 50 MG AT BEDTIME NEED.. 01/16 2145 AC PO Zolpidem Tartrate 5 MG AT BEDTIME 02/28 2200 AC 02/28 PO 2322 Review of Systems Review of Systems: The review of systems is negative for chest pains, palpitations nor lightheadedness. The remainder of the 14 point review of systems is noncontributory with the exception of above. 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 Home Who Do You Live With? self Services at Home: None Smoking Status: Former Smoker ETOH Use: occasional use Illicit Drug Use: denies illicit drug use Functional Ability ADLs Independent: dressing, eating, toileting, bathing. Ambulation: independent IADLs Independent: shopping, housework, finances, food prep, telephone, transportation , medication admin. Exam & Diagnostic Data Vital Signs and I&O Vital Signs Date Time Temp Pulse Resp B/P B/P Pulse O2 O2 Flow FiO2 Mean Ox Delivery Rate 03/01 0800 97 Nasal 2.0L Cannula 03/01 0657 98.4 82 20 112/62 97 Nasal Cannula 03/01 0000 Nasal 2.0L Cannula 02/280 95 Nasal 2.0L Cannula 02/28 2155 97.8 85 22 128/78 94 Nasal 2.0L Cannula 02/28 2128 97.9 69 16 136/79 98 Nasal 2.0L Cannula 02/28 1950 97.1 92 22 140/59 96 Nasal 2.0L Cannula 02/28 1628 88 Room Air 02/28 1609 96.5 101 18 170/89 93 Nasal 2.0L Cannula 02/28 1237 96.6 96 18 140/83 85 Room Air Intake & Output 03/01 1600 03/01 0800 03/01 0000 02/28 1600 02/28 0800 02/28 0000 Intake Total 480 460 Output Total 875 300 Balance -395 160 Intake, Oral 480 460 Number 0 Bowel Movements Output, Urine 875 300 Patient 202 lb 202 lb Weight Physical Exam: General: Nontoxic, no apparent distress. HEENT: Sclera and conjunctiva within normal limits, without xanthelasmas. Neck: Carotids 2+ without bruits. Respiratory: Scattered rhonchi, air movement is good, without accessory respiratory muscle use. Heart: Regular rate and rhythm, 2/6 systolic ejection murmur at left sternal border, without JVD. Abdomen: Soft, nontender, no masses, normoactive bowel sounds, positive for ascites. Extremities: Without clubbing, cyanosis, proximally 6 mm of pitting edema in both lower extremities to the thighs. Neuro: Nonfocal exam, strength, 5 out of 5 Skin: Within normal limits without lesions. Psych: Mood and affect: Normal Labs/Manuel Results: Laboratory Tests 03/01 03/01 02/28 0400 0400 2210 Chemistry Sodium (137 - 145 mmol/L) 149 H Potassium (3.5 - 5.1 mmol/L) 3.3 L Chloride (98 - 107 mmol/L) 99 Carbon Dioxide (22 - 30 mmol/L) 37 H Anion Gap (5 - 16) 13 BUN (9 - 20 mg/dL) 31 H Creatinine (0.7 - 1.2 mg/dL) 1.2 Estimated GFR (>60 ml/min) 59 L BUN/Creatinine Ratio (7 - 25 %) 25.8 H Troponin I (<0.11 ng/ml) 0.06 0.06 Coagulation PT (9.4 - 12.5 SEC) 14.3 H INR (0.90 - 1.17) 1.37 H Hematology CBC w Diff NO MAN DIFF REQ WBC (4.8 - 10.8 /CUMM) 5.3 RBC (4.70 - 6.10 /CUMM) 4.89 Hgb (14.0 - 18.0 G/DL) 13.6 L Hct (42 - 52 %) 42.6 MCV (80.0 - 94.0 FL) 87.1 MCH (27.0 - 31.0 PG) 27.9 RDW (11.5 - 14.5 %) 18.8 H Plt Count (130 - 400 /CUMM) 250 MPV (7.4 - 10.4 FL) 8.5 Gran % (42.2 - 75.2 %) 70.4 Lymphocytes % (20.5 - 51.1 %) 15.2 L Monocytes % (1.7 - 9.3 %) 10.9 H Eosinophils % (0 - 5 %) 2.9 Basophils % (0.0 - 2.0 %) 0.6 Absolute Granulocytes (1.4 - 6.5 /CUMM) 3.7 Absolute Lymphocytes (1.2 - 3.4 /CUMM) 0.8 L Absolute Monocytes (0.10 - 0.60 /CUMM) 0.6 Absolute Eosinophils (0.0 - 0.7 /CUMM) 0.2 Absolute Basophils (0.0 - 0.2 /CUMM) 0 PUBS MCHC (33.0 - 37.0 G/DL) 32.0 L 02/28 1246 Chemistry Sodium (137 - 145 mmol/L) 148 H Potassium (3.5 - 5.1 mmol/L) 3.8 Chloride (98 - 107 mmol/L) 97 L Carbon Dioxide (22 - 30 mmol/L) 40 H Anion Gap (5 - 16) 11 BUN (9 - 20 mg/dL) 34 H Creatinine (0.7 - 1.2 mg/dL) 1.5 H Estimated GFR (>60 ml/min) 45 L BUN/Creatinine Ratio (7 - 25 %) 22.7 Glucose (65 - 99 mg/dL) 126 H Calcium (8.4 - 10.2 mg/dL) 9.5 Total Bilirubin (0.2 - 1.3 mg/dL) 1.6 H AST (17 - 59 U/L) 31 ALT (21 - 72 U/L) 31 Alkaline Phosphatase (< 127 U/L) 109 Troponin I (<0.11 ng/ml) 0.05 [id number] Pept (<125 pg/mL) 6730 H Total Protein (6.3 - 8.2 g/dL) 6.8 Albumin (3.5 - 5.0 g/dL) 3.9 Globulin (1.9 - 4.2 gm/dL) 2.9 Albumin/Globulin Ratio (1.1 - 2.2 %) 1.3 TSH (0.270 - 4.200 uIU/mL) 3.350 Free T4 (0.78 - 2.44 ng/dL) 1.64 Hematology CBC w Diff NO MAN DIFF REQ WBC (4.8 - 10.8 /CUMM) 5.8 RBC (4.70 - 6.10 /CUMM) 5.35 Hgb (14.0 - 18.0 G/DL) 14.9 Hct (42 - 52 %) 47.0 MCV (80.0 - 94.0 FL) 88.0 MCH (27.0 - 31.0 PG) 28.0 RDW (11.5 - 14.5 %) 19.4 H Plt Count (130 - 400 /CUMM) 263 MPV (7.4 - 10.4 FL) 8.3 Gran % (42.2 - 75.2 %) 71.5 Lymphocytes % (20.5 - 51.1 %) 16.5 L Monocytes % (1.7 - 9.3 %) 8.0 Eosinophils % (0 - 5 %) 3.0 Basophils % (0.0 - 2.0 %) 1.0 Absolute Granulocytes (1.4 - 6.5 /CUMM) 4.1 Absolute Lymphocytes (1.2 - 3.4 /CUMM) 1.0 L Absolute Monocytes (0.10 - 0.60 /CUMM) 0.5 Absolute Eosinophils (0.0 - 0.7 /CUMM) 0.2 Absolute Basophils (0.0 - 0.2 /CUMM) 0.1 PUBS MCHC (33.0 - 37.0 G/DL) 31.8 L Assessment/Plan Assessment/Plan 76-year-old gentleman with a past medical history of COPD, hyperlipidemia, hypothyroidism, prior lung tumor (resected in 1999) and questionable CHF ( unclear type). He presents to our hospital with increasing lower extremity edema. Lower extremity edema: The lower extremity edema is likely multifactorial in etiology which would include elevated pressures from his underlying cirrhosis as well as likely intrinsic lung disease with an COPD likely elevated pulmonary pressures. There is as well likely a component of acute congestive heart failure, and we will obtain and review an echocardiogram to evaluate his LV structure and function. Total IV fluid is overloaded and I would therefore attempt further diuresis, using IV Lasix. Further recommendations made based on results of his echocardiogram. If a significant cardiomyopathy is noted, a further workup including an underlying ischemic etiology will likely be necessary. COPD: The patient has COPD as noted on CT scan and further evaluation by pulmonary may prove beneficial. Thank you for allowing us to participate in the care of your patient. Please do not hesitate to contact us further with any questions. Sincerely, Shawn Felipe MD [facility] Consult Acknowledgment - Thank you for your consult request.
--- NOTE | 2017-03-01 12:29 | ECHOCARDIOGRAM REPORT ---
MONALISA ARENAS Age: 76 : 1940 Gender: M Exam Date: 03/01/2017 09:00 Exam Location: 1 [address] Ht (in): 70 Wt (lb): 202 BSA: 2.15 BP: 112 / 62 Ordering Physician: Adrian Cintron MD Referring Physician: Adrian Cintron MD Technologist: Oli Kwan [facility] Room Number: 177-1 Indications: HEART FAILURE Rhythm: Technical Quality: good FINDINGS Left Ventricle Normal LV chamber size and wall thickness. The estimated LVEF is 55%. There is mild septal dyssynchrony as well as diastolic septal flattening, which may be consistent with right ventricular volume overload. Right Ventricle The right ventricle is markedly enlarged with overall normal wall thickness. There is severe right ventricular systolic dysfunction. Right Atrium Moderately dilated right atrium Left Atrium Normal-sized left atrium The interatrial septum is mildly aneurysmal with no significant transseptal flow by color Doppler. Mitral Valve Mildly thickened and calcified mitral valvular leaflets and annulus. There is trace to mild mitral regurgitation. Aortic Valve Moderately calcified, trileaflet aortic valve. There is no significant aortic stenosis. There is no significant aortic regurgitation. Tricuspid Valve Mildly thickened and calcified tricuspid valve leaflets with no significant stenosis. There is mild tricuspid regurgitation. There is severe pulmonary hypertension with an estimated PA systolic pressure of approximately 65 mmHg or greater. Pulmonic Valve Grossly normal appearing pulmonic valve Pericardium Grossly normal appearing pericardium Great Vessels Grossly normal appearing great vessels. The IVC is dilated and does not collapse with inspiration. CONCLUSIONS Normal LV chamber size and wall thickness. The estimated LVEF is 55%. There is mild septal dyssynchrony as well as diastolic septal flattening, which may be consistent with right ventricular volume overload. The right ventricle is markedly enlarged with overall normal wall thickness. There is severe right ventricular systolic dysfunction. There is trace to mild mitral regurgitation. There is severe pulmonary hypertension with an estimated PA systolic pressure of approximately 65 mmHg or greater. Shawn Felipe M.D. (Electronically Signed) Final Date: 01 March 2017 12:28 MEASUREMENTS (Male / Female) Normal Values 2D ECHO LV Diastolic Diameter PLAX 4.6 cm 4.2 - 5.9 / 3.9 - 5.3 cm LV Systolic Diameter PLAX 3.8 cm 2.1 - 4.0 cm LV Fractional Shortening PLAX 17.4 % 25 - 46 % LV Ejection Fraction 2D Teich 36.4 % IVS Diastolic Thickness 1.1 cm LVPW Diastolic Thickness 0.9 cm LV Relative Wall Thickness 0.4 RV Internal Dim ED PLAX 4.3 cm 1.9 - 3.8 cm LVOT Diameter 1.9 cm Aortic Root Diameter 3.5 cm LA Systolic Diameter LX 3.3 cm 3.0 - 4.0 / 2.7 - 3.8 cm Ascending Aorta Diameter 3.1 cm DOPPLER AV Peak Velocity 95.1 cm/s AV Peak Gradient 3.6 mmHg AV Mean Velocity 67.3 cm/s AV Mean Gradient 2.0 mmHg AV Velocity Time Integral 19.4 cm LVOT Peak Velocity 70.7 cm/s LVOT Peak Gradient 2.0 mmHg LVOT Mean Velocity 41.7 cm/s LVOT Mean Gradient 1.0 mmHg LVOT Velocity Time Integral 11.3 cm LVOT Stroke Volume 32.0 cm AV Area Cont Eq vti 1.7 cm AV Area Cont Eq pk 2.1 cm MV Peak Velocity 89.6 cm/s MV Peak Gradient 3.2 mmHg MV Mean Velocity 57.5 cm/s MV Mean Gradient 2.0 mmHg Mitral E Point Velocity 47.4 cm/s Mitral A Point Velocity 69.6 cm/s Mitral E to A Ratio 0.7 MV PHT Velocity 71.9 cm/s MV Deceleration [place] 584.0 cm/s MV Pressure Half Time 36.9 ms MV Area PHT 6.0 cm MV Deceleration Time 187.0 ms TR Peak Velocity 362.0 cm/s TR Peak Gradient 52.4 mmHg Right Atrial Pressure 10.0 mmHg Pulmonary Artery Systolic Pressu 62.4 mmHg Right Ventricular Systolic Press 62.4 mmHg PV Peak Velocity 51.0 cm/s PV Peak Gradient 1.0 mmHg PV Mean Velocity 38.5 cm/s PV Mean Gradient 1.0 mmHg PV Velocity Time Integral 9.5 cm LV E' Lateral Velocity 7.0 cm/s Mitral E to LV E' Lateral Ratio 6.8 LV E' Septal Velocity 3.7 cm/s Mitral E to LV E' Septal Ratio 12.8
--- NOTE | 2017-03-01 14:52 | ULTRASOUND REPORT ---
EXAMINATION: US ABDOMEN COMPLETE CLINICAL INFORMATION: Cirrhosis and ascites.. COMPARISON: There are no prior studies for comparison. TECHNIQUE: Real-time imaging of the abdominal viscera. FINDINGS: PANCREAS: Limited visualization, the head and proximal body are unremarkable the distal body and tail are not visualized due to overlying bowel gas. The pancreatic duct is borderline dilated, measuring 4 mm in diameter. ABDOMINAL AORTA: Not well visualized due to overlying bowel gas.. INFERIOR VENA CAVA: Not visualized due to overlying bowel gas.. LIVER: There is coarsening of the hepatic echotexture with a nodular margin. No focal lesion or intrahepatic biliary duct dilatation. GALLBLADDER: The gallbladder is well visualized due to overlying bowel gas. Grossly normal. COMMON BILE DUCT: Normal in caliber measuring 0.8 cm in diameter, within normal limits for patient age. RIGHT KIDNEY: Normal. No hydronephrosis. No renal calculi or focal parenchymal lesions. The kidney is not measured, due to the mid and lower pole obscured by bowel gas. No findings are noted within the upper pole. In maximum dimension. LEFT KIDNEY: Normal. No hydronephrosis. No renal calculi or focal parenchymal lesions. The kidney measures 9.9 cm in maximum dimension. SPLEEN: Normal. The spleen measures 11.4 cm in maximum dimension. FREE FLUID: Free fluid is demonstrated in the right upper quadrant.. IMPRESSION: 1. Limited study due to overlying bowel gas. 2. Echotexture of the liver is suggestive of chronic hepatocellular disease, consistent with the given clinical indication of cirrhosis. 3. Free fluid identified within the right upper quadrant.
[2017-03-01 15:08] VITALS: BP 110/58
--- NOTE | 2017-03-01 16:17 | ULTRASOUND REPORT ---
EXAMINATION: US TRIPLEX OF LOWER EXTREMITIES, BILATERAL CLINICAL INFORMATION: Bilateral lower extremity edema evaluate for DVT. COMPARISON: There are no prior studies for comparison. TECHNIQUE: Color-flow triplex imaging with spectral analysis and compression Doppler were performed on the lower extremities. FINDINGS: RIGHT Lower Extremity: Incomplete compressibility is noted in the region of the proximal right femoral vein which extends to the mid and lower femoral veins, however flow is demonstrated within the proximal mid and distal femoral veins, approximately 50% of the lumen appears patent in the proximal femoral vein which tapers to less than 10% of the distal femoral vein. Color flow and respiratory variation is demonstrated within the popliteal vein consistent with reconstitution however the calf veins are not well visualized due to presence of substantial edema. The posterior tibial peroneal trunk is identified and appears to be patent. LEFT Lower Extremity: Respiratory variation, normal compression and augmented flow are noted throughout the lower extremities. The visualized common femoral vein, superficial femoral vein, profunda femoral vein, popliteal vein and midcalf peroneal and posterior tibial venous segments show no evidence of deep venous thrombosis. There is no Guillen's cyst noted in either left or right popliteal fossa.. IMPRESSION: 1. Noncompressibility in the proximal mid and distal right femoral vein. Intraluminal flow is approximately 50% at the proximal femoral vein decreasing 2 less than 10% at the distal right femoral vein. As noted there is apparent reconstitution with flow demonstrated in the popliteal fossa. The findings are consistent for DVT extending from the proximal to distal right femoral vein, as described. 2. Normal left lower extremity triplex scan without evidence of deep venous thrombosis involving the left lower extremity. The findings were discussed directly with Dr. Rice, at 2:51 PM on 03/01/2017.
--- NOTE | 2017-03-01 17:43 | Cons- Gastroenterology ---
General Information and HPI Consulting Request Date of Consult: 03/01/17 Requested By: Nicole EPPS,Nahid Reason for Consult: I was called by the hospitalist service earlier today to assess patient for cirrhosis on imaging studies, admitted for multifactorial lower extremity edema Source of Information: patient, old records Exam Limitations: no limitations History of Present Illness: 76 y/o male, CHF, COPD (not on home O2), HLD, gout, hypoT4, post resection of "benign lung tumor" 1999 in [place], [place] (transfxd then), sent in to [facility] 02/28/17 by his PMD, Dr. Tafoya, for worsening B/L LE edema, to his thighs. Apparently, the patient has had B/L LE edema for 2 years, txd with Lasix by his PMD. The dose of his Lasix was increased by his PMD 3 weeks ago (amount unknown), as the edema was worse. He went to his PMD 02/28/17, to refill his Ambien that he takes for insomnia, and labs showed increased BNP, concerning for CHF exacerbation. The patient had baseline SOB and was sedentary. He denied any worsening of his breathing, chest pain, palpitations, orthopnea, PND, weight gain, or changes medications, other than his Lasix. He did admit to [facility]. He claimed he did not follow-up with a administrative executive or door closer. He is an ex-60 pk yr cigarette smoker, D/C 1992. 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 He denied any illicit drugs or IVDA. He has multiple tattoos. He denied any FHx GI Ca, GI disease, or inherited liver disease. The patient arrived at the [facility] 02/28/17 at 12:21 PM. Upon arrival, BP 140 /83, P 96, R 18, T 96.6, O2 sat RA 85%. His O2 sat improved o 98% on 2L. He was given IV Lasix in the ER. The patient denied any jaundice, dark urine, light stools, pruritus, confusion, fevers, chills, symptoms of UTI or URI, GERD, nausea, vomiting, odynophagia, dysphagia, hematemesis, early satiety, abdominal pain, melena, diarrhea, constipation, obstipation, tenesmus, change in stool caliber, or rectal bleeding. *He never had a baseline colonoscopy or EGD. He was not on any NSAIDs. He denied any unintentional weight loss. He claimed he lost 18 pounds over the past few weeks [employer], due to diuretics. He denied any definite increased abdominal girth. The patient was seen by cardiology in conultation 03/01/17. *He was subsequently found to have a DVT of the proximal to distal right femoral vein (*see imaging studies). 02/28/17: Admission labs- WBC 5.8, H/H 14.9/47, MCV 88, RDW 19.4, PLT 263, glucose 126, BUN/Cr 34/1.5, GFR 45, Na 148, K 3.8, HCO3 40, AG 11, Ca 9.5, albumin 3.9, globulin 2.9, TBil 1.6 (without fracs), alk phos 109, AST 31, ALT 31, troponin .05, elevated BNP 6730, nl FT4 1.64, TSH 3.35, PT 14.3, INR 1.37. 02/28/17: Rapid viral influenza A/B- negative. 03/01/17: WBC 5.3, H/H 13.6/42.6, MCV 87.1, RDW 18.8, PLT 250, BUN/Cr 31/1.2, GFR 59, Na 149, K 3.3, HCO3 37, AG 13. 02/28/17: EKG- NSR @ 93, normal axis, 1st degree AVB, LAE, unifocal PVC, PRWP c/ w probable antseptal MA, age indeterminate. 02/28/17: CHEST XRAY, TWO VIEWS- Borderline cardiomegaly with mild pulmonary venous congestion. No pulmonary edema. Flattened diaphragm with a distorted contour, potentially due to COPD or pleural parenchymal scarring. Blunting of the posterolateral costophrenic sulci could be due to trace effusions or chronic pleural parenchymal scarring. The latter is favored given the appearance of the remainder of the diaphragm. Mild DJD. 02/28/17: CT CHEST WO IV CONTRAST- 1. No acute abnormality. 2. Severe henley emphysematous changes of lungs. 3. Small dependent left pleural effusion. 4. Cirrhosis of liver with small volume of abdominal ascites at the upper abdomen. 03/01/17: US ABDOMEN COMPLETE- 1. Limited study due to overlying bowel gas. 2. Echotexture of the liver is suggestive of chronic hepatocellular disease, consistent with the given clinical indication of cirrhosis. No focal hepatic defect. Normal GB. No dilated ducts. CBD 8 mm (normal for pt's age). Normal spleen 11.4 cm. 3. Free fluid identified within the right upper quadrant. 4. Normal kidneys without hydronephrosis. 03/01/17: US-EXT BILAT VENOUS DOPPLER- 1. Noncompressibility in the proximal mid and distal right femoral vein. Intraluminal flow is approximately 50% at the proximal femoral vein decreasing 2 less than 10% at the distal right femoral vein. As noted there is apparent reconstitution with flow demonstrated in the popliteal fossa. The findings are consistent for *DVT extending from the proximal to distal right femoral vein, as described. 2. Normal left lower extremity triplex scan without evidence of deep venous thrombosis involving the left lower extremity. *The findings were discussed directly with Dr. Rice, at 2:51 PM on 03/01/2017. 03/01/17: ECHOCARDIOGRAM- Normal LV chamber size and wall thickness. The estimated LVEF is 55%. There is mild septal dyssynchrony as well as diastolic septal flattening, which may be consistent with right ventricular volume overload. The right ventricle is markedly enlarged with overall normal wall thickness. There is severe right ventricular systolic dysfunction. There is trace to mild mitral regurgitation. There is severe pulmonary hypertension with an estimated PA systolic pressure of approximately 65 mmHg or greater. Allergies/Medications Allergies: Coded Allergies: No Known Allergies (02/28/17) Current Medications: Current Medications Sig/Bridger Start time Last Medication Dose Route Stop Time Status Admin Albuterol Sulfate 3 ML BID 03/01 2199 AC 03/01 INH 1759 Albuterol Sulfate 2 PUF Q4 02/28 2199 DC 03/01 INH 0415 Aspirin 81 MG DAILY 02/28 2141 DC 02/28 PO 2322 Atorvastatin Calcium 20 MG 03/01 AC PO Budesonide/ 2 PUF BID 02/28 2199 AC 03/01 Formoterol Fumarate INH 0815 Enoxaparin Sodium 100 MG DAILY@03/01 1700 AC 03/01 SC 1858 Enoxaparin Sodium 40 MG DAILY@03/01 170 DC 03/01 SC 1858 Enoxaparin Sodium 140 MG DAILY 03/01 1515 CAN SC Enoxaparin Sodium 40 MG DAILY 03/01 1000 CAN SC Furosemide 40 MG 7:30 AM, & 4:30 PM 03/01 0730 DC 03/01 IV 0804 Furosemide 40 MG ONCE ONE 02/28 214 DC 02/28 IV 02/28 2145 232 Ipratropium [place] 2.5 ML BID 03/01 2200 AC 03/01 INH 1759 Ipratropium [place] 2.5 ML Q6-PRN PRN 02/29 2144 AC INH Levothyroxine Sodium 0.075 MG DAILY AC 03/01 0700 AC 03/01 PO 0613 Potassium Chloride 40 MEQ BID 03/01 1053 AC 03/01 PO 03/01 2200 144 Trazodone HCl 50 MG AT BEDTIME NEED.. 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 FATHER (DM, PVD, B/L LE amputee). , Age 73; Cause: Diabetes. Psychosocial History Where Do You Live? Home Who Do You Live With? self Services at Home: None Primary Language: Indian Smoking Status: Former Smoker ETOH Use: denies use (remote EtOH abuse), occasional use Illicit Drug Use: denies illicit drug use Living Will? yes Power of Dumb Waiter Operator/HCP? yes Name of POA/HCP: pt's sister, Kandy Yusuf ([place])- ? # Other Social History: x 2, last in 1990. Lives alone. 3 dtrs- [employer] (2 by his 1st , 1 by his 2nd ). Ex-60 pk yr cigarette smoker, D/C 1992. remote heavy EtOH, D/C 1982. No illicit drugs or IVDA. Multiple tattoos. 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 Functional Ability ADLs Independent: dressing, eating, toileting, bathing. Ambulation: independent IADLs Independent: shopping, housework, finances, food prep, telephone, transportation , medication admin. Employment History Employment: Retired Profession/Employer: retired from [employer] industry ECHO Results (as available) Date of last Echo 03/01/17 EF% 55 Review of Systems Review of Systems: Full 14 point ROS otherwise N/C, & as above. Review of Systems Constitutional: Denies: chills, diaphoresis, fever, malaise, weakness, unexplained weight loss. EENTM: Reports: hearing changes (mild AFOGNAK). Denies: blurred vision, double vision, visual changes, eye pain, eye drainage, eye tearing, icterus, ear discharge, ear pain, ear redness, nasal congestion, epistaxis, nasal pain, throat pain, throat swelling, mouth pain, tooth pain. Cardiovascular: Reports: peripheral edema. Denies: chest pain, edema, orthopena, palpitations, syncope. Respiratory: Reports: short of breath ([facility]). Denies: cough, hemoptysis, orthopnea, sputum production, stridor, wheezing. GI: Denies: abdominal pain, bloating, constipation, diarrhea, distention, bowel incontinence, melena, nausea, bloody stool, changes in stool, vomiting, steatorrhea. Genitourinary: Denies: discharge, dysuria, frequency, hematuria, hesitation, nocturia, pain, urgency. Musculoskeletal: Denies: back pain, gout, joint pain, joint swelling, muscle pain, muscle stiffness, neck pain. Skin: Denies: cysts, change in skin color, change in hair/nails, dryness, erythema, jaundice, lesions, lymphangitis, lumps, moles, rash. Neurological/Psychological: Denies: anxiety, ataxia, cognitive dysfunction, confusion, depressed, dementia, emotional problems, headache, numbness, paresthesia, pre-existing deficit, petit mal seizures, tingling, tremors, tonic-clonic seizures, unable to move lower ext , unable to move upper ext, weakness. Hematologic/Endocrine: Denies: bruising, bleeding, polyuria, polydipsia. Immunologic/Allergic: Denies: splenectomy, HIV/AIDS, lymphadenopathy. All Other Systems: Reviewed and Negative Exam & Diagnostic Data Vital Signs and I&O Vital Signs Date Time Temp Pulse Resp B/P B/P Pulse O2 O2 Flow FiO2 Mean Ox Delivery Rate 03/01 1800 92 Nasal 2.0L Cannula 03/01 1750 92 Nasal 2.0L Cannula 03/01 1650 78 Room Air 03/01 1600 92 Nasal 2.0L Cannula 03/01 1508 98.4 86 20 110/58 92 Nasal 2.0L Cannula 03/01 1126 Nasal 2.0L Cannula 03/01 1119 95 Nasal 2.0L Cannula 03/01 0800 97 Nasal 2.0L Cannula 03/01 0657 98.4 82 20 112/62 97 Nasal Cannula 03/01 0000 Nasal 2.0L Cannula 02/28 2200 95 Nasal 2.0L Cannula 02/28 2155 97.8 85 22 128/78 94 Nasal 2.0L Cannula 02/28 2128 97.9 69 16 136/79 98 Nasal 2.0L Cannula 02/28 1950 97.1 92 22 140/59 96 Nasal 2.0L Cannula Intake & Output 03/01 1600 03/01 0400 02/28 1600 02/28 0400 02/27 1600 02/27 0400 Intake Total 1140 460 Output Total 1825 300 Balance -685 160 Intake, Oral 1140 460 Number 0 Bowel Movements Output, Urine 1825 300 Patient 202 lb 202 lb 202 lb Weight Physical Exam: Well-developed, well-nourished male, in no apparent distress, on O2-2L nc. Sclera anicteric. Conjunctiva pink. Oropharynx clear. No oral thrush. No apthous ulcers. There is no adenopathy, thyromegaly, or JVD. ? mild HJR. No peripheral stigmata of inflammatory bowel disease or chronic liver disease on exam (aside from edema & scant fluid shift). No spiders on the anterior chest wall. No gynecomastia. No CVA tenderness. Lungs: currently, clear to A&P, with prolonged expiratory phase. No wheezing, rales, or rhonchi. Mild decreased BS at the bases B/L, L > R. Heart exam: regular rate rhythm, S1 and S2, with I/ systolic murmur. Abdominal exam: normal bowel sounds, soft belly, nontender, without guarding or rebound. No mass. No splenomegaly. Liver approximately 14 cm by percussion. Scant fluid shift. No pulsatile mass. No epigastric bruit. Digital rectal exam: refused by patient. Extremities: without cyanosis or clubbing. 1-2+ pitting edema LE B/L, to mid-thighs, with mild stasis dermatitis changes B/L. No definite palpable cords, post right femoral DVT. No palmar erythema. No Dupuytren's contractures. Mild DJD. No rash. Multiple tattoos. Distal pulses 1+ bilaterally. DTRs 1+ bilaterally. Alert and oriented x 3. Right handed. Motor 5/5 B/L. No tremor. No asterixis. Results Pertinent Lab Results: Laboratory Tests 03/01 03/01 02/28 0400 0400 2210 Chemistry Sodium (137 - 145 mmol/L) 149 H Potassium (3.5 - 5.1 mmol/L) 3.3 L Chloride (98 - 107 mmol/L) 99 Carbon Dioxide (22 - 30 mmol/L) 37 H Anion Gap (5 - 16) 13 BUN (9 - 20 mg/dL) 31 H Creatinine (0.7 - 1.2 mg/dL) 1.2 Estimated GFR (>60 ml/min) 59 L BUN/Creatinine Ratio (7 - 25 %) 25.8 H Troponin I (<0.11 ng/ml) 0.06 0.06 Coagulation PT (9.4 - 12.5 SEC) 14.3 H INR (0.90 - 1.17) 1.37 H Hematology CBC w Diff NO MAN DIFF REQ WBC (4.8 - 10.8 /CUMM) 5.3 RBC (4.70 - 6.10 /CUMM) 4.89 Hgb (14.0 - 18.0 G/DL) 13.6 L Hct (42 - 52 %) 42.6 MCV (80.0 - 94.0 FL) 87.1 MCH (27.0 - 31.0 PG) 27.9 RDW (11.5 - 14.5 %) 18.8 H Plt Count (130 - 400 /CUMM) 250 MPV (7.4 - 10.4 FL) 8.5 Gran % (42.2 - 75.2 %) 70.4 Lymphocytes % (20.5 - 51.1 %) 15.2 L Monocytes % (1.7 - 9.3 %) 10.9 H Eosinophils % (0 - 5 %) 2.9 Basophils % (0.0 - 2.0 %) 0.6 Absolute Granulocytes (1.4 - 6.5 /CUMM) 3.7 Absolute Lymphocytes (1.2 - 3.4 /CUMM) 0.8 L Absolute Monocytes (0.10 - 0.60 /CUMM) 0.6 Absolute Eosinophils (0.0 - 0.7 /CUMM) 0.2 Absolute Basophils (0.0 - 0.2 /CUMM) 0 PUBS MCHC (33.0 - 37.0 G/DL) 32.0 L 02/28 1246 Chemistry Sodium (137 - 145 mmol/L) 148 H Potassium (3.5 - 5.1 mmol/L) 3.8 Chloride (98 - 107 mmol/L) 97 L Carbon Dioxide (22 - 30 mmol/L) 40 H Anion Gap (5 - 16) 11 BUN (9 - 20 mg/dL) 34 H Creatinine (0.7 - 1.2 mg/dL) 1.5 H Estimated GFR (>60 ml/min) 45 L BUN/Creatinine Ratio (7 - 25 %) 22.7 Glucose (65 - 99 mg/dL) 126 H Calcium (8.4 - 10.2 mg/dL) 9.5 Total Bilirubin (0.2 - 1.3 mg/dL) 1.6 H AST (17 - 59 U/L) 31 ALT (21 - 72 U/L) 31 Alkaline Phosphatase (< 127 U/L) 109 Troponin I (<0.11 ng/ml) 0.05 [id number] Pept (<125 pg/mL) 6730 H Total Protein (6.3 - 8.2 g/dL) 6.8 Albumin (3.5 - 5.0 g/dL) 3.9 Globulin (1.9 - 4.2 gm/dL) 2.9 Albumin/Globulin Ratio (1.1 - 2.2 %) 1.3 TSH (0.270 - 4.200 uIU/mL) 3.350 Free T4 (0.78 - 2.44 ng/dL) 1.64 Hematology CBC w Diff NO MAN DIFF REQ WBC (4.8 - 10.8 /CUMM) 5.8 RBC (4.70 - 6.10 /CUMM) 5.35 Hgb (14.0 - 18.0 G/DL) 14.9 Hct (42 - 52 %) 47.0 MCV (80.0 - 94.0 FL) 88.0 MCH (27.0 - 31.0 PG) 28.0 RDW (11.5 - 14.5 %) 19.4 H Plt Count (130 - 400 /CUMM) 263 MPV (7.4 - 10.4 FL) 8.3 Gran % (42.2 - 75.2 %) 71.5 Lymphocytes % (20.5 - 51.1 %) 16.5 L Monocytes % (1.7 - 9.3 %) 8.0 Eosinophils % (0 - 5 %) 3.0 Basophils % (0.0 - 2.0 %) 1.0 Absolute Granulocytes (1.4 - 6.5 /CUMM) 4.1 Absolute Lymphocytes (1.2 - 3.4 /CUMM) 1.0 L Absolute Monocytes (0.10 - 0.60 /CUMM) 0.5 Absolute Eosinophils (0.0 - 0.7 /CUMM) 0.2 Absolute Basophils (0.0 - 0.2 /CUMM) 0.1 PUBS MCHC (33.0 - 37.0 G/DL) 31.8 L Imaging/Other Studies: 02/28/17: EKG- NSR @ 93, normal axis, 1st degree AVB, LAE, unifocal PVC, PRWP c/ w probable antseptal MA, age indeterminate. 02/28/17: CHEST XRAY, TWO VIEWS- Borderline cardiomegaly with mild pulmonary venous congestion. No pulmonary edema. Flattened diaphragm with a distorted contour, potentially due to COPD or pleural parenchymal scarring. Blunting of the posterolateral costophrenic sulci could be due to trace effusions or chronic pleural parenchymal scarring. The latter is favored given the appearance of the remainder of the diaphragm. Mild DJD. 02/28/17: CT CHEST WO IV CONTRAST- 1. No acute abnormality. 2. Severe henley emphysematous changes of lungs. 3. Small dependent left pleural effusion. 4. Cirrhosis of liver with small volume of abdominal ascites at the upper abdomen. 03/01/17: US ABDOMEN COMPLETE- 1. Limited study due to overlying bowel gas. 2. Echotexture of the liver is suggestive of chronic hepatocellular disease, consistent with the given clinical indication of cirrhosis. No focal hepatic defect. Normal GB. No dilated ducts. CBD 8 mm (normal for pt's age). Normal spleen 11.4 cm. 3. Free fluid identified within the right upper quadrant. 4. Normal kidneys without hydronephrosis. 03/01/17: US-EXT BILAT VENOUS DOPPLER- 1. Noncompressibility in the proximal mid and distal right femoral vein. Intraluminal flow is approximately 50% at the proximal femoral vein decreasing 2 less than 10% at the distal right femoral vein. As noted there is apparent reconstitution with flow demonstrated in the popliteal fossa. The findings are consistent for *DVT extending from the proximal to distal right femoral vein, as described. 2. Normal left lower extremity triplex scan without evidence of deep venous thrombosis involving the left lower extremity. *The findings were discussed directly with Dr. Rice, at 2:51 PM on 03/01/2017. 03/01/17: ECHOCARDIOGRAM- Normal LV chamber size and wall thickness. The estimated LVEF is 55%. There is mild septal dyssynchrony as well as diastolic septal flattening, which may be consistent with right ventricular volume overload. The right ventricle is markedly enlarged with overall normal wall thickness. There is severe right ventricular systolic dysfunction. There is trace to mild mitral regurgitation. There is severe pulmonary hypertension with an estimated PA systolic pressure of approximately 65 mmHg or greater. Assessment/Plan Assessment/Recommendations: 76 y/o male, CHF, COPD (not on home O2), HLD, gout, hypoT4, post resection of "benign lung tumor" 1999 in [place], [place] (transfxd then), sent in to [facility] 02/28/17 by his PMD, Dr. Tafoya, for worsening B/L LE edema, to his thighs. Apparently, the patient has had B/L LE edema for 2 years, txd with Lasix by his PMD. The dose of his Lasix was increased by his PMD 3 weeks ago (amount unknown), as the edema was worse. He went to his PMD 02/28/17, to refill his Ambien that he takes for insomnia, and labs showed increased BNP, concerning for CHF exacerbation. The patient had baseline SOB and was sedentary. He denied any worsening of his breathing, chest pain, palpitations, orthopnea, PND, weight gain, or changes medications, other than his Lasix. He did admit to [facility]. He claimed he did not follow-up with a administrative executive or door closer. He is an ex-60 pk yr cigarette smoker, D/C 1992. 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 He denied any illicit drugs or IVDA. He has multiple tattoos. He denied any FHx GI Ca, GI disease, or inherited liver disease. The patient arrived at the [place] [facility] 02/28/17 at 12:21 PM. Upon arrival, BP 140 /83, P 96, R 18, T 96.6, O2 sat RA 85%. His O2 sat improved o 98% on 2L. He was given IV Lasix in the ER. The patient denied any jaundice, dark urine, light stools, pruritus, confusion, fevers, chills, symptoms of UTI or URI, GERD, nausea, vomiting, odynophagia, dysphagia, hematemesis, early satiety, abdominal pain, melena, diarrhea, constipation, obstipation, tenesmus, change in stool caliber, or rectal bleeding. *He never had a baseline colonoscopy or EGD. He was not on any NSAIDs. He denied any unintentional weight loss. He claimed he lost 18 pounds over the past few weeks [employer], due to diuretics. He denied any definite increased abdominal girth. The patient was seen by cardiology in conultation 03/01/17. *He was subsequently found to have a DVT of the proximal to distal right femoral vein (*see imaging studies). 02/28/17: Admission labs- WBC 5.8, H/H 14.9/47, MCV 88, RDW 19.4, PLT 263, glucose 126, BUN/Cr 34/1.5, GFR 45, Na 148, K 3.8, HCO3 40, AG 11, Ca 9.5, albumin 3.9, globulin 2.9, TBil 1.6 (without fracs), alk phos 109, AST 31, ALT 31, troponin .05, elevated BNP 6730, nl FT4 1.64, TSH 3.35, PT 14.3, INR 1.37. 02/28/17: Rapid viral influenza A/B- negative. 03/01/17: WBC 5.3, H/H 13.6/42.6, MCV 87.1, RDW 18.8, PLT 250, BUN/Cr 31/1.2, GFR 59, Na 149, K 3.3, HCO3 37, AG 13. 02/28/17: EKG- NSR @ 93, normal axis, 1st degree AVB, LAE, unifocal PVC, PRWP c/ w probable antseptal MA, age indeterminate. 02/28/17: CHEST XRAY, TWO VIEWS- Borderline cardiomegaly with mild pulmonary venous congestion. No pulmonary edema. Flattened diaphragm with a distorted contour, potentially due to COPD or pleural parenchymal scarring. Blunting of the posterolateral costophrenic sulci could be due to trace effusions or chronic pleural parenchymal scarring. The latter is favored given the appearance of the remainder of the diaphragm. Mild DJD. 02/28/17: CT CHEST WO IV CONTRAST- 1. No acute abnormality. 2. Severe henley emphysematous changes of lungs. 3. Small dependent left pleural effusion. 4. Cirrhosis of liver with small volume of abdominal ascites at the upper abdomen. 03/01/17: US ABDOMEN COMPLETE- 1. Limited study due to overlying bowel gas. 2. Echotexture of the liver is suggestive of chronic hepatocellular disease, consistent with the given clinical indication of cirrhosis. No focal hepatic defect. Normal GB. No dilated ducts. CBD 8 mm (normal for pt's age). Normal spleen 11.4 cm. 3. Free fluid identified within the right upper quadrant. 4. Normal kidneys without hydronephrosis. 03/01/17: US-EXT BILAT VENOUS DOPPLER- 1. Noncompressibility in the proximal mid and distal right femoral vein. Intraluminal flow is approximately 50% at the proximal femoral vein decreasing 2 less than 10% at the distal right femoral vein. As noted there is apparent reconstitution with flow demonstrated in the popliteal fossa. The findings are consistent for *DVT extending from the proximal to distal right femoral vein, as described. 2. Normal left lower extremity triplex scan without evidence of deep venous thrombosis involving the left lower extremity. *The findings were discussed directly with Dr. Rcie, at 2:51 PM on 03/01/2017. 03/01/17: ECHOCARDIOGRAM- Normal LV chamber size and wall thickness. The estimated LVEF is 55%. There is mild septal dyssynchrony as well as diastolic septal flattening, which may be consistent with right ventricular volume overload. The right ventricle is markedly enlarged with overall normal wall thickness. There is severe right ventricular systolic dysfunction. There is trace to mild mitral regurgitation. There is severe pulmonary hypertension with an estimated PA systolic pressure of approximately 65 mmHg or greater. *The patient's cirrhotic-appearing liver certainly could be from right-sided heart failure, with RV overload, markedly enlarged RV, severe RV systolic dysfunction, trace to mild MR, & severe pulmonary HTN. *If this were to be the case, if there were tappable ascites, I would expect there to be high SAAG, high protein (as opposed to high SAAG, low protein, if this were purely from intrinsic portal HTN from the liver itself). Having stated that, some of the edema could also be from his COPD, with elevated pulmonary pressures. Surprisingly, his platelet count was normal, without thrombocytopenia, and there was no reversal of his albumin:globulin ratio. Additionally, there was no splenomegaly on imaging studies. His INR was minimally elevated. *The right femoral vein DVT was noted. The hyperNa+ & hypoK+ were noted, & Lasix was held. From a GI perspective, chronic viral hepatitis, AIH, Fe overload, PBC (doubt), A1AT deficiency (doubt), etc. should be excluded. Imaging studies should also be obtained to r/o any lymphatic obstruction (doubt, as the edema appears to be pitting in nature, as opposed to non-pitting). The IVC was dilated on echocardiogram. The normal TSH goes against myxedema. *SUGGEST- Agree with holding Lasix for now, if okay with cardiology. *Substitute with Aldactone 50 mg daily, which would be more physiologic in cirrhosis (& would raise K+ & lower Na+). Strict I/O's. Daily weights. 2g Na+ diet. Close follow-up of BUN/Cr, GFR, lytes. Supplemental O2 prn. *Follow-up with radiology to see if there is enough ascites to tap. *If so, send asitic fluid for gram stain, cell count, C&S, BF protein, BF albumin (& peripheral serum albumin to calculate SAAG), & cytology. Follow-up with cardiology. Consider pulmonary input. *Advise doppler HV & PV. *Consider CT AP to check pelvic region, doubt lymphatic obstruction. *Guaiac stools (the patient refused a digital rectal exam). *A/C tx for right femoral DVT, as per medical team (Lovenox may not be sufficient, consider IV heparin). *Consideration for outpt liver biopsy & HVWP. *Advise checking HIV, Hep A Ab, Hep Bs Ag, Hep C Ab, Hep Bs Ab, Hep B core Ab (if not immune, should be semi-electively vaccinated against both Hep A & B). Consideration for Fe, TIBC, ferritin, ANTOINETTE, anti-LKM Ab, anti-smooth muscle Ab, AMA, A1AT level, & AFP. Check U/A (doubt nephrotic). Assuming there is cirrhosis, the patient should have hepatoma surveillance Q 6 months with serial AFP/RUQ sono. Advise annual flu shot & Pneumovax, if never received. *The patient was told he needs outpt baseline EGD (r/o varices)/baseline colonoscopy. *The patient was given my office number for future reference. Further GI recommendations to follow, depending on clinical course. The above was discussed with the medical house staff. Problem List: 1. Cirrhosis 2. Ascites 3. Bilateral lower extremity edema 4. Right-sided congestive heart failure 5. Pulmonary HTN 6. COPD (chronic obstructive pulmonary disease) Copies To: Nicole EPPS,Nahid; Lottie EPPS,Adalberto; Matteo EPPS,Shawn Consult Acknowledgment - Thank you for your consult request.
[2017-03-01 23:39] VITALS: BP 116/60
[2017-03-02 06:38] VITALS: BP 140/72
--- NOTE | 2017-03-02 07:56 | PN- Housestaff ---
Iza Valentine 03/02/17 0756: Subjective Follow-up For: Worsening lower extremity edema Hepatic cirrhosis/ascites\ Right lower extremity DVT Suspected CHF exacerbation Complaints: no complaints Subjective: Patient was seen and examined this morning. He was lying comfortably on bed without any complaints. He denied any worsening shortness of breath. He remained hemodynamically stable and afebrile. Review of Systems Constitutional: Denies: diaphoresis, fever. Cardiovascular: Reports: edema. Denies: chest pain, orthopena. Respiratory: Reports: short of breath. Gastrointestinal: Denies: bloating, constipation. Genitourinary: Denies: frequency, hematuria. Objective Last 24 Hrs of Vital Signs/I&O Vital Signs Date Time Temp Pulse Resp B/P B/P Pulse O2 O2 Flow FiO2 Mean Ox Delivery Rate 03/02 0940 93 Nasal 2.0L Cannula 03/02 0800 91 Nasal 2.0L Cannula 03/02 0638 98.7 89 20 140/72 93 Nasal Cannula 03/01 2339 98.3 91 18 116/60 94 Nasal 2.0L Cannula 03/01 1800 92 Nasal 2.0L Cannula 03/01 1750 92 Nasal 2.0L Cannula 03/01 1650 78 Room Air 03/01 1600 92 Nasal 2.0L Cannula 03/01 1508 98.4 86 20 110/58 92 Nasal 2.0L Cannula Intake & Output 03/02 1600 03/02 0800 03/02 0000 Intake Total 150 500 Output Total 500 600 Balance -350 -100 Intake, Oral 150 500 Number 0 Bowel Movements Output, Urine 500 600 Patient 200 lb Weight Weight Bed scale Measurement Method Physical Exam General Appearance: Alert, Oriented X3, Cooperative, No Acute Distress Cardiovascular: Regular Rate, Normal S1, Normal S2 Lungs: Normal Air Movement Abdomen: Soft, No Tenderness Extremities: bilateral 3+ lower extremity edema Current Medications: Current Medications Sig/Bridger Start time Last Medication Dose Route Stop Time Status Admin Albuterol Sulfate 3 ML BID 03/01 2200 AC 03/02 INH 0936 Apixaban 10 MG Q12H 03/02 1800 CAN PO 03/09 0601 Atorvastatin Calcium 20 MG 17003/01 1700 AC PO Budesonide/ 2 PUF BID 02/28 2200 AC 03/02 Formoterol Fumarate INH 0840 Enoxaparin Sodium 40 MG DAILY@17003/02 1700 DC SC Enoxaparin Sodium 140 MG DAILY 03/02 1445 UNVr SC Enoxaparin Sodium 100 MG DAILY@1700 03/01 1700 DC 03/01 SC 1858 Enoxaparin Sodium 40 MG DAILY@17003/01 1700 DC 03/01 SC 1858 Enoxaparin Sodium 140 MG DAILY 03/01 1515 CAN SC Ipratropium E[place]ile 2.5 ML BID 03/01 2200 AC 03/02 INH 0936 Ipratropium [place]ile 2.5 ML Q6-PRN PRN 02/29 2144 AC INH Levothyroxine Sodium 0.075 MG DAILY AC 03/01 0700 AC 03/02 PO 0601 Potassium Chloride 40 MEQ BID 03/01 1053 DC 03/01 PO 03/01 2200 215 Trazodone HCl 50 MG .STK-MED ONE 03/01 2229 DC PO 03/01 2230 Trazodone HCl 50 MG AT BEDTIME NEED.. 02/29 2144 AC 03/01 PO 223 Zolpidem Tartrate 5 MG AT BEDTIME 02/28 2199 AC 03/01 PO 215 Last 24 Hrs of Lab/Manuel Results Last 24 Hrs of Labs/Mics: Laboratory Tests 03/02/17 0641: Anion Gap 8, Estimated GFR 49 L, BUN/Creatinine Ratio 20.0, Iron 51, TIBC 360, Ferritin 15.2 L, CBC w Diff NO MAN DIFF REQ, RBC 4.65 L, MCV 88.0, MCH 27.9, RDW 19.7 H, MPV 8.7, Gran % 70.2, Lymphocytes % 15.9 L, Monocytes % 9.4 H, Eosinophils % 4.2, Basophils % 0.3, Absolute Granulocytes 4.1, Absolute Lymphocytes 0.9 L, Absolute Monocytes 0.5, Absolute Eosinophils 0.2, Absolute Basophils 0, PUBS MCHC 31.7 L, Hepatitis A IgM Ab NONREACTIVE, Hep Bs Antigen NONREACTIVE, Hep Bs Antibody NONREACTIVE, Hep B Core IgM Ab Conf NONREACTIVE, Hepatitis C Antibody NONREACTIVE, HIV 1&2 Ab Western Blot NONREACTIVE Assessment/Plan Assessment: . Patient is 76 year old gentleman with past medical history significant for congestive heart failure, COPD not on home oxygen, history of gout and hyperlipidemia, hypothyroidism and lung tumor status post resection in 1999 came in with chief complaint of worsening lower extremity edema and abnormal labs most likely hypernatremia and hypokalemia. Patient was admitted on telemetry floor and we will address following problems. Problem #1 worsening bilateral lower extremity edema which could be multifactorial due to his underlying CHF and also his hepatic cirrhosis might be playing a role. * Cardiology consultation was placed and appreciated * Echocardiogram showed 55% left ventricular ejection fraction. Markedly enlarged right ventricle with normal wall thickness. * Given his hypernatremia which could be due to high dose of Lasix at home we would hold on further IV diuresis we might consider starting him on Aldactone in near future * Supplemental oxygen to keep oxygen saturation more than 90% * Bilateral lower extremity Doppler ultrasound showed right-sided DVT and he was started on full dose anticoagulation with Lovenox. He has slightly elevated creatinine today and we will switch Lovenox to apixaban once his CT abdomen and pelvis were done and came back normal. Problem #2 history of COPD and lung tumor status post right ?lobectomy. * We'll continue supplemental oxygen Problem #3 chronic issues, hyperlipidemia, gout, hypothyroidism and insomnia * We will continue his home medications Problem #4 liver cirrhosis and ascites on CT abdomen * GI consultation was placed and appreciated. Most of his GI workup can be done as outpatient. Patient would be follow-up with Dr. andre as outpatient. * Hepatitis panel came back negative. * I spoke with IR and there is minimal amount of ascites fluid not enough to do diagnostic paracentesis. We will do CT abdomen and pelvis to rule out any other intra-abdominal mass/pathology Problem List: 1. Right-sided congestive heart failure 2. Ascites 3. Cirrhosis Pain Ratin Pain Location: Not applicable Pain Goal: Remain pain free Pain Plan: Tylenol Tomorrow's Labs & Rationales: CbC and physical electrolyte panel Nahid Rivera MD 03/02/17 1036: Attending MD Review Statement Attending Statement Attending MD Statement: examined this patient, discuss w/resident/PA/GLOB[employer] SALES EXECUTIVE, agreed w/resident/PA/[employer] SAL[employer] EXECUTIVE, reviewed EMR data (avail), discussed with nursing, discussed with case mgmt, amended to note Attending Assessment/Plan: Patient seen and examined. Lying in bed and not in acute distress. No issues overnight. No events on telemetry monitoring. He admits to shortness of breath but states that this is chronic. It is unchanged for him. He reports that he is not interested in his pulse oximetry has he does not want to go home and reports that he does not push himself and does not feel he will benefit from oxygen therapy. Reports lower extremity swelling is unchanged. He denies pain. This is some discomfort. He denies nausea vomiting. On examination abdomen is soft, nontender with normal bowel sounds. Gastroenterology consultation appreciated. Problems: 1. Worsening lower extremity swelling secondary to deep vein thrombosis. 2. Heart failure with preserved ejection fraction. 3. Hypernatremia; probably secondary to overdiuresis from Lasix 4. COPD; no evidence of broncho-spasm present. 5. Severe pulmonary hypertension. Recommendations: -Follow-up hepatitis panel as part of workup for his cirrhosis. Follow-up with the radiologist service regarding if there is enough fluid to allow for a diagnostic tap. She will need follow-up as an outpatient for possible liver biopsy. - Obtain CT abdomen and pelvis-to rule out any intra-abdominal compressive process. - CT abdomen does not reveal the need for any acute surgical intervention recommended beginning patient on anticoagulation therapy with Eliquis. He will require lifelong anticoagulation therapy for this unprovoked deep vein thrombosis. - Upon discharge patient will require age-appropriate cancer screening as well as workup for coagulopathy as an outpatient. -Sodium level is improving today. Creatinine is mildly elevated today. Recommend holding diuresis for now his sodium level continues to improve it with natural hydration orally, Aldactone may be initiated at the time of discharge. -Patient has COPD which by imaging and by history appears severe. He is on appropriate therapy with short acting because achiness as needed, long-acting beta agonist and inhaled corticosteroid therapy. Will assess the need for home oxygen and follow up with the patient if needed.
[2017-03-02 08:13] LABS: ABSOLUTE BASOPHIL COUNT 0 /CUMM (0.0-0.2); ABSOLUTE EOSINOPHIL COUNT 0.2 /CUMM (0.0-0.7); ABSOLUTE GRANULOCYTE CT 4.1 /CUMM (1.4-6.5); ABSOLUTE LYMPH COUNT 0.9 /CUMM (1.2-3.4); ABSOLUTE MONOCYTE COUNT 0.5 /CUMM (0.10-0.60); BASOPHIL % 0.3 % (0.0-2.0); EOSINOPHIL % 4.2 % (0-5); GRANULOCYTE % 70.2 % (42.2-75.2); MEAN CORPUSCULAR HGB 27.9 PG (27.0-31.0); MEAN CORPUSCULAR HGB CONC 31.7 G/DL (33.0-37.0); MEAN PLATELET VOLUME 8.7 FL (7.4-10.4); PLATELET COUNT 234 /CUMM (130-400); RBC DISTRIBUTION WIDTH 19.7 % (11.5-14.5); RED BLOOD CELL CT 4.65 /CUMM (4.70-6.10); WHITE BLOOD CELL COUNT 5.8 /CUMM (4.8-10.8)
--- NOTE | 2017-03-02 11:34 | PN- Cardiology ---
Subjective Subjective: Telemetry reviewed. Sinus bradycardia during sleep. Otherwise unremarkable. Objective Vital Signs and I&Os Vital Signs Date Time Temp Pulse Resp B/P B/P Pulse O2 O2 Flow FiO2 Mean Ox Delivery Rate 03/02 0940 93 Nasal 2.0L Cannula 03/02 0800 91 Nasal 2.0L Cannula 03/02 0638 98.7 89 20 140/72 93 Nasal Cannula 03/01 2339 98.3 91 18 116/60 94 Nasal 2.0L Cannula 03/01 1800 92 Nasal 2.0L Cannula 03/01 1750 92 Nasal 2.0L Cannula 03/01 1650 78 Room Air 03/01 1600 92 Nasal 2.0L Cannula 03/01 1508 98.4 86 20 110/58 92 Nasal 2.0L Cannula 03/01 1126 Nasal 2.0L Cannula Intake & Output 03/02 1600 03/02 0800 03/02 0000 03/01 1600 03/01 0800 03/01 0000 Intake Total 150 500 660 480 460 Output Total 500 600 950 875 300 Balance -350 -100 -290 -395 160 Intake, Oral 150 500 660 480 460 Number 0 0 Bowel Movements Output, Urine 500 600 950 875 300 Patient 200 lb 202 lb 202 lb Weight Weight Bed scale Measurement Method Physical Exam: Gen. exam patient comfortable was actually sleeping and I awakened him. Head normocephalic atraumatic Eyes sclera anicteric conjunctiva showed no pallor extraocular muscles were normal Neck no jugular venous distention no thyroid masses no palpable nose Chest lungs were clear bilaterally heart regular rhythm without murmurs Abdomen soft no organomegaly bowel sounds normal Extremities bilateral 1-2+ edema. Current Medications: Current Medications Sig/Bridger Start time Last Medication Dose Route Stop Time Status Admin Albuterol Sulfate 3 ML BID 03/01 2199 AC 03/02 INH 0936 Atorvastatin Calcium 20 MG 03/01 170 AC PO Budesonide/ 2 PUF BID 02/28 2199 AC 03/02 Formoterol Fumarate INH 0840 Enoxaparin Sodium 40 MG DAILY@03/02 170 AC SC Enoxaparin Sodium 100 MG DAILY@03/01 1700 AC 03/01 SC 1858 Enoxaparin Sodium 40 MG DAILY@03/01 1700 DC 03/01 SC 1858 Enoxaparin Sodium 140 MG DAILY 03/01 1515 CAN SC Furosemide 40 MG 7:30 AM, & 4:30 PM 03/01 0730 DC 03/01 IV 0804 Ipratropium [place] 2.5 ML BID 03/01 2199 AC 03/02 INH 0936 Ipratropium [place] 2.5 ML Q6-PRN PRN 02/29 2144 AC INH Levothyroxine Sodium 0.075 MG DAILY AC 03/01 0700 AC 03/02 PO 0601 Potassium Chloride 40 MEQ BID 03/01 1053 DC 03/01 PO 03/01 2200 215 Trazodone HCl 50 MG .STK-MED ONE 03/01 2229 DC PO 03/01 2230 Trazodone HCl 50 MG AT BEDTIME NEED.. 02/29 2144 AC 03/01 PO 2238 Zolpidem Tartrate 5 MG AT BEDTIME 02/28 2199 AC 03/01 PO 2150 Results Last 48 Hrs of Labs/Mics: Laboratory Tests 03/02/17 0641: Anion Gap 8, Estimated GFR 49 L, BUN/Creatinine Ratio 20.0, Iron 51, TIBC 360, Ferritin 15.2 L, CBC w Diff NO MAN DIFF REQ, RBC 4.65 L, MCV 88.0, MCH 27.9, RDW 19.7 H, MPV 8.7, Gran % 70.2, Lymphocytes % 15.9 L, Monocytes % 9.4 H, Eosinophils % 4.2, Basophils % 0.3, Absolute Granulocytes 4.1, Absolute Lymphocytes 0.9 L, Absolute Monocytes 0.5, Absolute Eosinophils 0.2, Absolute Basophils 0, PUBS MCHC 31.7 L, Hepatitis A IgM Ab NONREACTIVE, Hep Bs Antigen NONREACTIVE, Hep Bs Antibody NONREACTIVE, Hep B Core IgM Ab Conf NONREACTIVE, Hepatitis C Antibody NONREACTIVE, HIV 1&2 Ab Western Blot NONREACTIVE 03/01/17 0400: Troponin I 0.06 03/01/17 0400: Anion Gap 13, Estimated GFR 59 L, BUN/Creatinine Ratio 25.8 H, PT 14.3 H, INR 1.37 H, CBC w Diff NO MAN DIFF REQ, RBC 4.89, MCV 87.1, MCH 27.9, RDW 18.8 H, MPV 8.5, Gran % 70.4, Lymphocytes % 15.2 L, Monocytes % 10.9 H, Eosinophils % 2.9, Basophils % 0.6, Absolute Granulocytes 3.7, Absolute Lymphocytes 0.8 L, Absolute Monocytes 0.6, Absolute Eosinophils 0.2, Absolute Basophils 0, PUBS MCHC 32.0 L 02/28/17 2210: Troponin I 0.06 02/28/17 1246: Anion Gap 11, Estimated GFR 45 L, BUN/Creatinine Ratio 22.7, Glucose 126 H, Calcium 9.5, Total Bilirubin 1.6 H, AST 31, ALT 31, Alkaline Phosphatase 109, Troponin I 0.05, Exw-[id number]-Cywwzrgfgkv Pept 6730 H, Total Protein 6.8, Albumin 3.9, Globulin 2.9, Albumin/Globulin Ratio 1.3, TSH 3.350, Free T4 1.64, CBC w Diff NO MAN DIFF REQ, RBC 5.35, MCV 88.0, MCH 28.0, RDW 19.4 H, MPV 8.3, Gran % 71.5, Lymphocytes % 16.5 L, Monocytes % 8.0, Eosinophils % 3.0, Basophils % 1.0, Absolute Granulocytes 4.1, Absolute Lymphocytes 1.0 L, Absolute Monocytes 0.5, Absolute Eosinophils 0.2, Absolute Basophils 0.1, PUBS MCHC 31.8 L Microbiology 02/28 2029 NASOPHARYN: Influenza Virus A & B Rapid Smear - COMP Recent Imaging Studies: Venous ultrasound1. Noncompressibility in the proximal mid and distal right femoral vein. Intraluminal flow is approximately 50% at the proximal femoral vein decreasing 2 less than 10% at the distal right femoral vein. As noted there is apparent reconstitution with flow demonstrated in the popliteal fossa. The findings are consistent for DVT extending from the proximal to distal right femoral vein, as described. 2. Normal left lower extremity triplex scan without evidence of deep venous thrombosis involving the left lower extremity. Echocardiogram Normal LV chamber size and wall thickness. The estimated LVEF is 55%. There is mild septal dyssynchrony as well as diastolic septal flattening, which may be consistent with right ventricular volume overload. The right ventricle is markedly enlarged with overall normal wall thickness. There is severe right ventricular systolic dysfunction. There is trace to mild mitral regurgitation. There is severe pulmonary hypertension with an estimated PA systolic pressure of approximately [address] scan of the lung 1. No acute abnormality. 2. Severe henley emphysematous changes of lungs. 3. Small dependent left pleural effusion. 4. Cirrhosis of liver with abdominal ascites. Assessment/Plan Assessment/Plan In summary this 76-year-old gentleman was admitted with the following problems #1 Bilateral leg edema. He has evidence of right deep vein thrombosis. Edema may be multifactorial. He has severe COPD and pulmonary hypertension with right ventricular enlargement and dysfunction. He is also suspected to have ascites related to cirrhosis of the liver. I would decrease Lasix to 20 mg IV twice a day for now #2. Severe COPD #3. History of lobectomy for lung tumor in the past. #4. Deep vein thrombosis. Lovenox. Going to be transitioned to oral anticoagulants Is quite possible he has all also pulmonary embolism. The right ventricular enlargement may be related to pulmonary embolism. I will suggest VQ scan for completion of workup and to define possibility of her be embolism and extent. Continue telemetry? Yes
[2017-03-02 15:05] VITALS: BP 120/76
--- NOTE | 2017-03-02 16:26 | PN- Gastroenterology ---
Assessment/Plan Assessment/Recommendations: 76 y/o male, CHF, COPD (not on home O2), HLD, gout, hypoT4, post resection of "benign lung tumor" 1999 in [place], [place] (transfxd then), sent in to [facility] 02/28/17 by his PMD, Dr. Tafoya, for worsening B/L LE edema, to his thighs. Apparently, the patient has had B/L LE edema for 2 years, txd with Lasix by his PMD. The dose of his Lasix was increased by his PMD 3 weeks ago (amount unknown), as the edema was worse. He went to his PMD 02/28/17, to refill his Ambien that he takes for insomnia, and labs showed increased BNP, concerning for CHF exacerbation. The patient had baseline SOB and was sedentary. He denied any worsening of his breathing, chest pain, palpitations, orthopnea, PND, weight gain, or changes medications, other than his Lasix. He did admit to [facility]. He claimed he did not follow-up with a food products tester or radio frequency technician. He is an ex-60 pk yr cigarette smoker, D/C 1992. 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 He denied any illicit drugs or IVDA. He has multiple tattoos. He denied any FHx GI Ca, GI disease, or inherited liver disease. The patient arrived at the [facility] 02/28/17 at 12:21 PM. Upon arrival, BP 140 /83, P 96, R 18, T 96.6, O2 sat RA 85%. His O2 sat improved to 98% on 2L. He was given IV Lasix in the ER. The patient denied any jaundice, dark urine, light stools, pruritus, confusion, fevers, chills, symptoms of UTI or URI, GERD, nausea, vomiting, odynophagia, dysphagia, hematemesis, early satiety, abdominal pain, melena, diarrhea, constipation, obstipation, tenesmus, change in stool caliber, or rectal bleeding. *He never had a baseline colonoscopy or EGD. He was not on any NSAIDs. He denied any unintentional weight loss. He claimed he lost 18 pounds over the past few weeks [employer], due to diuretics. He denied any definite increased abdominal girth. The patient was seen by cardiology in conultation 03/01/17. *He was subsequently found to have a DVT of the proximal to distal right femoral vein (*see imaging studies). 02/28/17: Admission labs- WBC 5.8, H/H 14.9/47, MCV 88, RDW 19.4, PLT 263, glucose 126, BUN/Cr 34/1.5, GFR 45, Na 148, K 3.8, HCO3 40, AG 11, Ca 9.5, albumin 3.9, globulin 2.9, TBil 1.6 (without fracs), alk phos 109, AST 31, ALT 31, troponin .05, elevated BNP 6730, nl FT4 1.64, TSH 3.35, PT 14.3, INR 1.37. 02/28/17: Rapid viral influenza A/B- negative. 03/01/17: WBC 5.3, H/H 13.6/42.6, MCV 87.1, RDW 18.8, PLT 250, BUN/Cr 31/1.2, GFR 59, Na 149, K 3.3, HCO3 37, AG 13. 02/28/17: EKG- NSR @ 93, normal axis, 1st degree AVB, LAE, unifocal PVC, PRWP c/ w probable antseptal PA, age indeterminate. 02/28/17: CHEST XRAY, TWO VIEWS- Borderline cardiomegaly with mild pulmonary venous congestion. No pulmonary edema. Flattened diaphragm with a distorted contour, potentially due to COPD or pleural parenchymal scarring. Blunting of the posterolateral costophrenic sulci could be due to trace effusions or chronic pleural parenchymal scarring. The latter is favored given the appearance of the remainder of the diaphragm. Mild DJD. 02/28/17: CT CHEST WO IV CONTRAST- 1. No acute abnormality. 2. Severe henley emphysematous changes of lungs. 3. Small dependent left pleural effusion. 4. Cirrhosis of liver with small volume of abdominal ascites at the upper abdomen. 03/01/17: US ABDOMEN COMPLETE- 1. Limited study due to overlying bowel gas. 2. Echotexture of the liver is suggestive of chronic hepatocellular disease, consistent with the given clinical indication of cirrhosis. No focal hepatic defect. Normal GB. No dilated ducts. CBD 8 mm (normal for pt's age). Normal spleen 11.4 cm. 3. Free fluid identified within the right upper quadrant. 4. Normal kidneys without hydronephrosis. 03/01/17: US-EXT BILAT VENOUS DOPPLER- 1. Noncompressibility in the proximal mid and distal right femoral vein. Intraluminal flow is approximately 50% at the proximal femoral vein decreasing 2 less than 10% at the distal right femoral vein. As noted there is apparent reconstitution with flow demonstrated in the popliteal fossa. The findings are consistent for *DVT extending from the proximal to distal right femoral vein, as described. 2. Normal left lower extremity triplex scan without evidence of deep venous thrombosis involving the left lower extremity. *The findings were discussed directly with Dr. Rice, at 2:51 PM on 03/01/2017. 03/01/17: ECHOCARDIOGRAM- Normal LV chamber size and wall thickness. The estimated LVEF is 55%. There is mild septal dyssynchrony as well as diastolic septal flattening, which may be consistent with right ventricular volume overload. The right ventricle is markedly enlarged with overall normal wall thickness. There is severe right ventricular systolic dysfunction. There is trace to mild mitral regurgitation. There is severe pulmonary hypertension with an estimated PA systolic pressure of approximately 65 mmHg or greater. *The patient's cirrhotic-appearing liver certainly could be from right-sided heart failure, with RV overload, markedly enlarged RV, severe RV systolic dysfunction, trace to mild MR, & severe pulmonary HTN. *If this were to be the case, if there were tappable ascites, I would expect there to be high SAAG, high protein (as opposed to high SAAG, low protein, if this were purely from intrinsic portal HTN from the liver itself). Having stated that, some of the edema could also be from his COPD, with elevated pulmonary pressures. Surprisingly, his platelet count was normal, without thrombocytopenia, and there was no reversal of his albumin:globulin ratio. Additionally, there was no splenomegaly on imaging studies. His INR was minimally elevated. *The right femoral vein DVT was noted. The hyperNa+ & hypoK+ were noted, & Lasix was held. From a GI perspective, chronic viral hepatitis, AIH, Fe overload, PBC (doubt), A1AT deficiency (doubt), etc. should be excluded. Imaging studies should also be obtained to r/o any lymphatic obstruction (doubt, as the edema appears to be pitting in nature, as opposed to non-pitting). The IVC was dilated on echocardiogram. The normal TSH goes against myxedema. 03/02/17: CT ABDOMEN AND PELVIS WITH ORAL CONTRAST (no IV contrast due to low GFR)- 1. Bilateral pleural effusions, L > R. 2. Small pericardial effusion. COPD. 3. Moderate volume of abdominal ascites. 4. Generalized anasarca. No adenopathy. 5. Cirrhosis of liver. No focal hepatic defect, within the limits of a non-IV contrast study. No dilated ducts. 6. No mesenteric mass. 7. Calcification of the gallbladder wall vs. cholelithiasis. 8. Mild left-sided diverticula, w/o diverticulitis. Small B/L fat-containing IH. 9. DJD. (*CT reviewed with Dr. Garcia, of [facility], who felt that perhaps a dx abdominal tap could be done at the discretion of IR. 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 03/02/17: WBC 5.8, H/H 13/41, MCV 88, RDW 19.7, PLT 234, BUN/Cr 28/1.4, GFR 49, Na 147, K 4.0, HCO3 39, AG 8. 03/02/17: *Hep A Ab, Hep Bs Ag, Hep Bs Ab, Hep B core Ab, Hep C Ab, *HIV- all negative. 03/02/17: Fe 51, TIBC 360, Fe sat 14.2%, *ferritin 15.2 *As of 03/02/17, the patient remained hemodynamically stable & afebrile, with O2 sat 2L nc- 92%. Medical and cardiology notes were appreciated. His Lasix was held, due to mildly decreased GFR. Aldactone had not yet been started. The patient just had a 03/02/17: CT AP, & stated he was told by radiology that there was "no tappable fluid in his abdomen". (*I reviewed the CT with Dr. Garcia, of [facility], who thought that perhaps a dx abdominal tap may be able to be performed at the discretion of IR. *Additionally, there appeared to be a porcelain GB). His peripheral edema was improving. He remained on Lovenox for his right femoral vein DVT. He denied any abdominal pain, chest pain, or increased SOB. *Labs revealed Fe deficiency. He denied any overt GI bleeding, hematemesis, or melena. *He still refused a digital rectal exam. *SUGGEST- Agree with holding Lasix for now, if okay with cardiology. *Substitute with Aldactone 50 mg daily, as GFR allows, which would be more physiologic in cirrhosis (& would raise K+ & lower Na+). Strict I/O's. Daily weights. 2g Na+ diet. Close follow-up of BUN/Cr, GFR, lytes. Supplemental O2 prn. *Follow-up with IR to see if there is enough ascites to tap on the 03/02/17: CT AP. *If so, send asitic fluid for gram stain, cell count , C&S, BF protein, BF albumin (& peripheral serum albumin to calculate SAAG), & cytology. Follow-up with cardiology. Consider pulmonary input. *Advise doppler HV & PV.*Guaiac stools (the patient refused a digital rectal exam & *is Fe deficient). *A/C tx for right femoral DVT, as per medical team (Tanya). * Consideration for outpt liver biopsy & HVWP. (*As the patient is not immune, he should be semi-electively vaccinated against both Hep A & B). *Consider surgical consultation (outpt vs. inpt) for porcelain GB (*associated with increased risk of GB Ca, keeping in mind the right femoral vein DVT). * Consideration for ANTOINETTE, anti-LKM Ab, anti-smooth muscle Ab, AMA, A1AT level, & AFP. *Check U/A (doubt nephrotic). Assuming there is cirrhosis, the patient should have hepatoma surveillance Q 6 months with serial AFP/RUQ sono. Advise annual flu shot & Pneumovax, if never received. *The patient was told he needs outpt baseline EGD (r/o varices; ? random SB bx)/baseline colonoscopy, especially since the patient is Fe deficient & has right femoral vein DVT (this would have to be coordinated with Lovenox tx). *Consider celiac panel (i.e.- IgA , tTG Ab, DGP Ab), regarding Fe deficiency. *The patient was given my office number for future reference. The above was discussed with the medical house staff in detail. *Further inpt GI follow-up as needed, as the remainder of the workup can be done as an outpt (prefer abdominal tap prior to D/C). Problem List: 1. Cirrhosis 2. Ascites 3. Bilateral lower extremity edema 4. Iron deficiency 5. Right-sided congestive heart failure 6. Pulmonary HTN 7. COPD (chronic obstructive pulmonary disease) 8. Porcelain gallbladder Subjective Subjective: 03/02/17: CT ABDOMEN AND PELVIS WITH ORAL CONTRAST (no IV contrast due to low GFR)- 1. Bilateral pleural effusions, L > R. 2. Small pericardial effusion. COPD. 3. Moderate volume of abdominal ascites. 4. Generalized anasarca. No adenopathy. 5. Cirrhosis of liver. No focal hepatic defect, within the limits of a non-IV contrast study. No dilated ducts. 6. No mesenteric mass. 7. Calcification of the gallbladder wall vs. cholelithiasis. 8. Mild left-sided diverticula, w/o diverticulitis. Small B/L fat-containing IH. 9. DJD. (*CT reviewed with Dr. Garcia, of [facility], who felt that perhaps a dx abdominal tap could be done at the discretion of IR. 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 03/02/17: WBC 5.8, H/H 13/41, MCV 88, RDW 19.7, PLT 234, BUN/Cr 28/1.4, GFR 49, Na 147, K 4.0, HCO3 39, AG 8. 03/02/17: *Hep A Ab, Hep Bs Ag, Hep Bs Ab, Hep B core Ab, Hep C Ab, *HIV- all negative. 03/02/17: Fe 51, TIBC 360, Fe sat 14.2%, *ferritin 15.2 *As of 03/02/17, the patient remained hemodynamically stable & afebrile, with O2 sat 2L nc- 92%. Medical and cardiology notes were appreciated. His Lasix was held, due to mildly decreased GFR. Aldactone had not yet been started. The patient just had a 03/02/17: CT AP, & stated he was told by radiology that there was "no tappable fluid in his abdomen". (*I reviewed the CT with Dr. Garcia, of [facility], who thought that perhaps a dx abdominal tap may be able to be performed at the discretion of IR. *Additionally, there appeared to be a porcelain GB). His peripheral edema was improving. He remained on Lovenox for his right femoral vein DVT. He denied any abdominal pain, chest pain, or increased SOB. *Labs revealed Fe deficiency. He denied any overt GI bleeding, hematemesis, or melena. *He still refused a digital rectal exam. Review of Systems: Full 14 point ROS otherwise N/C, & as above. Review of Systems Constitutional: Denies: chills, diaphoresis, fever, malaise, weakness, unexplained weight loss. EENTM: Reports: hearing changes (mild EEK). Denies: blurred vision, double vision, visual changes, eye pain, eye drainage, eye tearing, icterus, ear discharge, ear pain, ear redness, nasal congestion, epistaxis, nasal pain, throat pain, throat swelling, mouth pain, tooth pain. Cardiovascular: Reports: peripheral edema-> improving. Denies: chest pain, edema, orthopena, palpitations, syncope. Respiratory: Reports: chronic short of breath ([facility]). Denies: cough, hemoptysis, orthopnea, sputum production, stridor, wheezing. GI: Denies: abdominal pain, bloating, constipation, diarrhea, distention, bowel incontinence, melena, nausea, bloody stool, changes in stool, vomiting, steatorrhea. Genitourinary: Denies: discharge, dysuria, frequency, hematuria, hesitation, nocturia, pain, urgency. Musculoskeletal: Denies: back pain, gout, joint pain, joint swelling, muscle pain, muscle stiffness, neck pain. Skin: Denies: cysts, change in skin color, change in hair/nails, dryness, erythema, jaundice, lesions, lymphangitis, lumps, moles, rash. Neurological/Psychological: Denies: anxiety, ataxia, cognitive dysfunction, confusion, depressed, dementia, emotional problems, headache, numbness, paresthesia, pre-existing deficit, petit mal seizures, tingling, tremors, tonic-clonic seizures, unable to move lower ext , unable to move upper ext, weakness. Hematologic/Endocrine: Denies: bruising, bleeding, polyuria, polydipsia. Immunologic/Allergic: Denies: splenectomy, HIV/AIDS, lymphadenopathy. All Other Systems: Reviewed and Negative Objective Vital Signs and I&Os Vital Signs Date Time Temp Pulse Resp B/P B/P Pulse O2 O2 Flow FiO2 Mean Ox Delivery Rate 03/02 1505 97.7 86 16 120/76 92 03/02 0940 93 Nasal 2.0L Cannula 03/02 0800 91 Nasal 2.0L Cannula 03/02 0638 98.7 89 20 140/72 93 Nasal Cannula 03/01 2339 98.3 91 18 116/60 94 Nasal 2.0L Cannula 03/01 1800 92 Nasal 2.0L Cannula 03/01 1750 92 Nasal 2.0L Cannula Intake & Output 03/02 1600 03/02 0400 03/01 1600 03/01 0400 02/28 1600 02/28 0400 Intake Total 420 359 8651 460 Output Total 459 172 0857 300 Balance -300 -100 -685 160 Intake, Oral 690 596 0187 460 Number 0 0 Bowel Movements Output, Urine 879 624 1823 300 Patient 200 lb 202 lb 202 lb 202 lb Weight Weight Bed scale Measurement Method Physical Exam: Well-developed, well-nourished male, in no apparent distress, on O2-2L nc. Sclera anicteric. Conjunctiva pink. Oropharynx clear. No oral thrush. No apthous ulcers. There is no adenopathy, thyromegaly, or JVD. No HJR. No peripheral stigmata of inflammatory bowel disease or chronic liver disease on exam (aside from edema & scant fluid shift). No spiders on the anterior chest wall. No gynecomastia. No CVA tenderness. Lungs: currently, clear to A&P, with prolonged expiratory phase. No wheezing, rales, or rhonchi. Mild decreased BS at the bases B/L, L > R. Heart exam: regular rate rhythm, S1 and S2, with I/ systolic murmur. Abdominal exam: normal bowel sounds, soft belly, nontender, without guarding or rebound. Small reducible B/L IH, otherwise no mass. No splenomegaly. Liver approximately 14 cm by percussion. Negative Jesus sign. Scant fluid shift. No pulsatile mass. No epigastric bruit. Digital rectal exam : refused by patient. Extremities: without cyanosis or clubbing. 1+ pitting edema LE B/L, to mid-thighs, with mild stasis dermatitis changes B/L. No definite palpable cords, post right femoral DVT. No palmar erythema. No Dupuytren's contractures. Mild DJD. No rash. Multiple tattoos. Distal pulses 1+ bilaterally. DTRs 1+ bilaterally. Alert and oriented x 3. Right handed. Motor 5/5 B/L. No tremor. No asterixis. Current Medications: Current Medications Sig/Bridger Start time Last Medication Dose Route Stop Time Status Admin Albuterol Sulfate 3 ML BID 03/01 220 AC 03/02 INH 0936 Apixaban 10 MG Q12H 03/02 1800 CAN PO 03/09 0601 Atorvastatin Calcium 20 MG 1700 03/01 1700 AC PO Budesonide/ 2 PUF BID 02/28 220 AC 03/02 Formoterol Fumarate INH 0840 Enoxaparin Sodium 40 MG DAILY@03/02 1700 DC SC Enoxaparin Sodium 100 MG DAILY@03/02 1700 AC SC Enoxaparin Sodium 40 MG DAILY@03/02 1700 AC SC Enoxaparin Sodium 140 MG DAILY 03/02 1445 CAN SC Enoxaparin Sodium 100 MG DAILY@03/01 1700 DC 03/01 SC 1858 Enoxaparin Sodium 40 MG DAILY@03/01 1700 DC 03/01 SC 1858 Ipratropium [place] 2.5 ML BID 03/01 2200 AC 03/02 INH 0936 Ipratropium [place] 2.5 ML Q6-PRN PRN 02/28 214 AC INH Levothyroxine Sodium 0.075 MG DAILY AC 03/01 0700 AC 03/02 PO 0601 Potassium Chloride 40 MEQ BID 03/01 1053 DC 03/01 PO 03/01 2200 215 Trazodone HCl 50 MG .STK-MED ONE 03/01 2229 DC PO 03/01 223 Trazodone HCl 50 MG AT BEDTIME NEED.. 02/28 214 03/01 PO 223 Zolpidem Tartrate 5 MG AT BEDTIME 02/28 220 AC 03/01 PO 215 Results Pertinent Lab Results: Laboratory Tests 03/02 03/01 0641 0400 Chemistry Sodium (137 - 145 mmol/L) 147 H Potassium (3.5 - 5.1 mmol/L) 4.0 Chloride (98 - 107 mmol/L) 101 Carbon Dioxide (22 - 30 mmol/L) 39 H Anion Gap (5 - 16) 8 BUN (9 - 20 mg/dL) 28 H Creatinine (0.7 - 1.2 mg/dL) 1.4 H Estimated GFR (>60 ml/min) 49 L BUN/Creatinine Ratio (7 - 25 %) 20.0 Iron (49 - 181 ug/dL) 51 TIBC (261 - 462 ug/dL) 360 Ferritin (17.9 - 464 ng/mL) 15.2 L Troponin I (<0.11 ng/ml) 0.06 Hematology CBC w Diff NO MAN DIFF REQ WBC (4.8 - 10.8 /CUMM) 5.8 RBC (4.70 - 6.10 /CUMM) 4.65 L Hgb (14.0 - 18.0 G/DL) 13.0 L Hct (42 - 52 %) 41.0 L MCV (80.0 - 94.0 FL) 88.0 MCH (27.0 - 31.0 PG) 27.9 RDW (11.5 - 14.5 %) 19.7 H Plt Count (130 - 400 /CUMM) 234 MPV (7.4 - 10.4 FL) 8.7 Gran % (42.2 - 75.2 %) 70.2 Lymphocytes % (20.5 - 51.1 %) 15.9 L Monocytes % (1.7 - 9.3 %) 9.4 H Eosinophils % (0 - 5 %) 4.2 Basophils % (0.0 - 2.0 %) 0.3 Absolute Granulocytes (1.4 - 6.5 /CUMM) 4.1 Absolute Lymphocytes (1.2 - 3.4 /CUMM) 0.9 L Absolute Monocytes (0.10 - 0.60 /CUMM) 0.5 Absolute Eosinophils (0.0 - 0.7 /CUMM) 0.2 Absolute Basophils (0.0 - 0.2 /CUMM) 0 PUBS MCHC (33.0 - 37.0 G/DL) 31.7 L Serology Hepatitis A IgM Ab (NONREACTIVE) NONREACTIVE Hep Bs Antigen (NONREACTIVE) NONREACTIVE Hep Bs Antibody (NONREACTIVE) NONREACTIVE Hep B Core IgM Ab Conf (NONREACTIVE) NONREACTIVE Hepatitis C Antibody (NONREACTIVE) NONREACTIVE HIV 1&2 Ab Western Blot (NONREACTIVE) NONREACTIVE 03/01 02/28 0400 2210 Chemistry Sodium (137 - 145 mmol/L) 149 H Potassium (3.5 - 5.1 mmol/L) 3.3 L Chloride (98 - 107 mmol/L) 99 Carbon Dioxide (22 - 30 mmol/L) 37 H Anion Gap (5 - 16) 13 BUN (9 - 20 mg/dL) 31 H Creatinine (0.7 - 1.2 mg/dL) 1.2 Estimated GFR (>60 ml/min) 59 L BUN/Creatinine Ratio (7 - 25 %) 25.8 H Troponin I (<0.11 ng/ml) 0.06 Coagulation PT (9.4 - 12.5 SEC) 14.3 H INR (0.90 - 1.17) 1.37 H Hematology CBC w Diff NO MAN DIFF REQ WBC (4.8 - 10.8 /CUMM) 5.3 RBC (4.70 - 6.10 /CUMM) 4.89 Hgb (14.0 - 18.0 G/DL) 13.6 L Hct (42 - 52 %) 42.6 MCV (80.0 - 94.0 FL) 87.1 MCH (27.0 - 31.0 PG) 27.9 RDW (11.5 - 14.5 %) 18.8 H Plt Count (130 - 400 /CUMM) 250 MPV (7.4 - 10.4 FL) 8.5 Gran % (42.2 - 75.2 %) 70.4 Lymphocytes % (20.5 - 51.1 %) 15.2 L Monocytes % (1.7 - 9.3 %) 10.9 H Eosinophils % (0 - 5 %) 2.9 Basophils % (0.0 - 2.0 %) 0.6 Absolute Granulocytes (1.4 - 6.5 /CUMM) 3.7 Absolute Lymphocytes (1.2 - 3.4 /CUMM) 0.8 L Absolute Monocytes (0.10 - 0.60 /CUMM) 0.6 Absolute Eosinophils (0.0 - 0.7 /CUMM) 0.2 Absolute Basophils (0.0 - 0.2 /CUMM) 0 PUBS MCHC (33.0 - 37.0 G/DL) 32.0 L 02/28 1246 Chemistry Sodium (137 - 145 mmol/L) 148 H Potassium (3.5 - 5.1 mmol/L) 3.8 Chloride (98 - 107 mmol/L) 97 L Carbon Dioxide (22 - 30 mmol/L) 40 H Anion Gap (5 - 16) 11 BUN (9 - 20 mg/dL) 34 H Creatinine (0.7 - 1.2 mg/dL) 1.5 H Estimated GFR (>60 ml/min) 45 L BUN/Creatinine Ratio (7 - 25 %) 22.7 Glucose (65 - 99 mg/dL) 126 H Calcium (8.4 - 10.2 mg/dL) 9.5 Total Bilirubin (0.2 - 1.3 mg/dL) 1.6 H AST (17 - 59 U/L) 31 ALT (21 - 72 U/L) 31 Alkaline Phosphatase (< 127 U/L) 109 Troponin I (<0.11 ng/ml) 0.05 Anm-[id number] Pept (<125 pg/mL) 6730 H Total Protein (6.3 - 8.2 g/dL) 6.8 Albumin (3.5 - 5.0 g/dL) 3.9 Globulin (1.9 - 4.2 gm/dL) 2.9 Albumin/Globulin Ratio (1.1 - 2.2 %) 1.3 TSH (0.270 - 4.200 uIU/mL) 3.350 Free T4 (0.78 - 2.44 ng/dL) 1.64 Hematology CBC w Diff NO MAN DIFF REQ WBC (4.8 - 10.8 /CUMM) 5.8 RBC (4.70 - 6.10 /CUMM) 5.35 Hgb (14.0 - 18.0 G/DL) 14.9 Hct (42 - 52 %) 47.0 MCV (80.0 - 94.0 FL) 88.0 MCH (27.0 - 31.0 PG) 28.0 RDW (11.5 - 14.5 %) 19.4 H Plt Count (130 - 400 /CUMM) 263 MPV (7.4 - 10.4 FL) 8.3 Gran % (42.2 - 75.2 %) 71.5 Lymphocytes % (20.5 - 51.1 %) 16.5 L Monocytes % (1.7 - 9.3 %) 8.0 Eosinophils % (0 - 5 %) 3.0 Basophils % (0.0 - 2.0 %) 1.0 Absolute Granulocytes (1.4 - 6.5 /CUMM) 4.1 Absolute Lymphocytes (1.2 - 3.4 /CUMM) 1.0 L Absolute Monocytes (0.10 - 0.60 /CUMM) 0.5 Absolute Eosinophils (0.0 - 0.7 /CUMM) 0.2 Absolute Basophils (0.0 - 0.2 /CUMM) 0.1 PUBS MCHC (33.0 - 37.0 G/DL) 31.8 L Imaging/Other Studies: 02/28/17: EKG- NSR @ 93, normal axis, 1st degree AVB, LAE, unifocal PVC, PRWP c/ w probable antseptal PA, age indeterminate. 02/28/17: CHEST XRAY, TWO VIEWS- Borderline cardiomegaly with mild pulmonary venous congestion. No pulmonary edema. Flattened diaphragm with a distorted contour, potentially due to COPD or pleural parenchymal scarring. Blunting of the posterolateral costophrenic sulci could be due to trace effusions or chronic pleural parenchymal scarring. The latter is favored given the appearance of the remainder of the diaphragm. Mild DJD. 02/28/17: CT CHEST WO IV CONTRAST- 1. No acute abnormality. 2. Severe henley emphysematous changes of lungs. 3. Small dependent left pleural effusion. 4. Cirrhosis of liver with small volume of abdominal ascites at the upper abdomen. 03/01/17: US ABDOMEN COMPLETE- 1. Limited study due to overlying bowel gas. 2. Echotexture of the liver is suggestive of chronic hepatocellular disease, consistent with the given clinical indication of cirrhosis. No focal hepatic defect. Normal GB. No dilated ducts. CBD 8 mm (normal for pt's age). Normal spleen 11.4 cm. 3. Free fluid identified within the right upper quadrant. 4. Normal kidneys without hydronephrosis. 03/01/17: US-EXT BILAT VENOUS DOPPLER- 1. Noncompressibility in the proximal mid and distal right femoral vein. Intraluminal flow is approximately 50% at the proximal femoral vein decreasing 2 less than 10% at the distal right femoral vein. As noted there is apparent reconstitution with flow demonstrated in the popliteal fossa. The findings are consistent for *DVT extending from the proximal to distal right femoral vein, as described. 2. Normal left lower extremity triplex scan without evidence of deep venous thrombosis involving the left lower extremity. *The findings were discussed directly with Dr. Rice, at 2:51 PM on 03/01/2017. 03/01/17: ECHOCARDIOGRAM- Normal LV chamber size and wall thickness. The estimated LVEF is 55%. There is mild septal dyssynchrony as well as diastolic septal flattening, which may be consistent with right ventricular volume overload. The right ventricle is markedly enlarged with overall normal wall thickness. There is severe right ventricular systolic dysfunction. There is trace to mild mitral regurgitation. There is severe pulmonary hypertension with an estimated PA systolic pressure of approximately 65 mmHg or greater. 03/02/17: CT ABDOMEN AND PELVIS WITH ORAL CONTRAST (no IV contrast due to low GFR)- 1. Bilateral pleural effusions, L > R. 2. Small pericardial effusion. COPD. 3. Moderate volume of abdominal ascites. 4. Generalized anasarca. No adenopathy. 5. Cirrhosis of liver. No focal hepatic defect, within the limits of a non-IV contrast study. No dilated ducts. 6. No mesenteric mass. 7. Calcification of the gallbladder wall vs. cholelithiasis. 8. Mild left-sided diverticula, w/o diverticulitis. Small B/L fat-containing IH. 9. DJD. (*CT reviewed with Dr. Garcia, of [facility], who felt that perhaps a dx abdominal tap could be done at the discretion of IR. 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
--- NOTE | 2017-03-02 16:43 | CT SCAN REPORT ---
EXAMINATION: CT ABDOMEN AND PELVIS WITH ORAL CONTRAST CLINICAL INFORMATION: Cirrhosis. Abdominal mass. COMPARISON: None TECHNIQUE: Multidetector volumetric imaging was performed from the superior aspect of the liver through the pubic symphysis following administration of oral contrast. Sagittal and coronal reformatted images were obtained on the technologist's workstation. DLP: 540.21 mGy-cm FINDINGS: LUNG BASES: Bilateral pleural effusions. The volume is small on the right and moderate on the left. Emphysematous lucencies of lung. There is a small pericardial effusion. Measures 0.8 cm transverse, sagittal image 63. LIVER, GALLBLADDER, AND BILIARY TREE: Nodular contour of the liver consistent with cirrhosis. Right lobe of liver measures 15 cm superior inferior. No focal liver lesion. No intrahepatic bile duct dilatation. There is linear calcification at the fundus of the gallbladder. This is due to calcification of the wall of the gallbladder or small gallstones. There is a small calcification also near the mid body of the gallbladder as well. No bile duct dilatation. PANCREAS: Fatty atrophy of the pancreas. No pancreatitis. No inflammation or mass of pancreas. SPLEEN: Spleen measures 10.1 cm superior inferior. ADRENAL GLANDS: Unremarkable. KIDNEYS AND URETERS: The kidneys are normal in size, shape, and attenuation. No hydronephrosis, hydroureter, or calculi seen. No perinephric stranding. BLADDER: Unremarkable. GASTROINTESTINAL TRACT: Mild diverticulosis of sigmoid left colon. No diverticulitis. No acute change of the bowel. No bowel obstruction. No bowel wall thickening or edema. Moderate volume of stool throughout the colon. The appendix is normal. The small-bowel loops are unremarkable. MESENTERY: Moderate volume of abdominal ascites. No mesenteric mass. No inflammation or abscess. ABDOMINAL WALL: Small bilateral fat-containing inguinal hernias. There is generalized anasarca in the subcutaneous fat. LYMPH NODES: Normal. VASCULAR: Atherosclerotic vascular wall calcifications of aorta and iliac vessels without aneurysm. PELVIC VISCERA: Prostate measures 4.7 cm transverse. OSSEOUS STRUCTURES: Multilevel degenerative spondylosis of spine with endplate spur, vacuum disc phenomena and facet joint arthrosis. IMPRESSION: 1. Bilateral pleural effusions. 2. Small pericardial effusion. 3. Moderate volume of abdominal ascites. 4. Generalized anasarca. 5. Cirrhosis of liver. 6. No mesenteric mass. 7. Calcification of the gallbladder wall versus cholelithiasis.
[2017-03-02 23:00] VITALS: BP 142/72
[2017-03-03 06:09] VITALS: BP 110/60
--- NOTE | 2017-03-03 07:27 | PN- Housestaff ---
Iza Valentine 03/03/17 0727: Subjective Follow-up For: Worsening lower extremity edema Hepatic cirrhosis/ascites\ Right lower extremity DVT Suspected CHF exacerbation Subjective: Patient was seen and examined this morning. He was complaining of insomnia and was requesting for medications on discharge. He remained hemodynamically stable. Currently he was nothing by mouth to get diagnostic paracenteses done. Review of Systems Constitutional: Denies: diaphoresis, fever. Cardiovascular: Denies: chest pain, orthopena. Respiratory: Denies: hemoptysis, short of breath. Gastrointestinal: Denies: bloating, constipation. Genitourinary: Denies: frequency, hematuria. Musculoskeletal: Reports: muscle pain. Objective Last 24 Hrs of Vital Signs/I&O Vital Signs Date Time Temp Pulse Resp B/P B/P Pulse O2 O2 Flow FiO2 Mean Ox Delivery Rate 03/03 0808 95 Nasal 2.0L Cannula 03/03 0800 96 Nasal 2.0L Cannula 03/03 0609 97.5 84 18 110/60 93 03/03 0000 Nasal 2.0L Cannula 03/02 2300 98.3 90 18 142/72 93 Nasal 2.0L Cannula 03/02 2106 93 Nasal 2.0L Cannula 03/02 1600 97 Nasal 2.0L Cannula 03/02 1505 97.7 86 16 120/76 92 Intake & Output 03/03 1600 03/03 0800 03/03 0000 Intake Total 110 400 Output Total 225 750 Balance -115 -350 Intake, IV 10 Intake, Oral 100 400 Number 1 Bowel Movements Output, Urine 225 750 Patient 199 lb Weight Weight Chair scale Measurement Method Physical Exam General Appearance: Alert, Oriented X3, Cooperative, No Acute Distress Cardiovascular: Regular Rate, Normal S1, Normal S2, No Murmurs Lungs: Normal Air Movement Abdomen: Soft, No Tenderness Current Medications: Current Medications Sig/Bridger Start time Last Medication Dose Route Stop Time Status Admin Albuterol Sulfate 3 ML BID 03/01 2200 AC 03/03 INH 0806 Apixaban 10 MG BID 03/03 1215 AC 03/03 PO 1314 Apixaban 10 MG Q12H 03/02 1800 CAN PO 03/09 0601 Atorvastatin Calcium 20 MG 1700 03/01 1700 AC PO Budesonide/ 2 PUF BID 02/28 2200 AC 03/03 Formoterol Fumarate INH 1114 Enoxaparin Sodium 40 MG DAILY@1700 03/02 1700 DC SC Enoxaparin Sodium 100 MG DAILY@1700 03/02 1700 DC 03/02 SC 1728 Enoxaparin Sodium 40 MG DAILY@1700 03/02 1700 DC 03/02 SC 1727 Enoxaparin Sodium 140 MG DAILY 03/02 1445 CAN SC Furosemide 20 MG ONCE ONE 03/03 1215 DC 03/03 IV 03/03 1216 1314 Ipratropium [place] 2.5 ML BID 03/01 2200 AC 03/03 INH 0807 Ipratropium [place] 2.5 ML Q6-PRN PRN 02/28 214 AC INH Levothyroxine Sodium 0.075 MG DAILY AC 03/01 0700 AC 03/03 PO 0532 Spironolactone 50 MG DAILY 03/02 1730 AC 03/03 PO 1111 Trazodone HCl 50 MG AT BEDTIME NEED.. 02/28 214 AC 03/02 PO 2220 Zolpidem Tartrate 5 MG AT BEDTIME 02/28 220 AC 03/02 PO 2220 Last 24 Hrs of Lab/Manuel Results Last 24 Hrs of Labs/Mics: Laboratory Tests 03/03/17 0845: PT 12.8 H, INR 1.22 H 03/03/17 0611: Anion Gap 8, Estimated GFR 59 L, BUN/Creatinine Ratio 21.7, CBC w Diff NO MAN DIFF REQ, RBC 4.55 L, MCV 87.8, MCH 27.9, RDW 19.3 H, MPV 8.6, Gran % 68.9, Lymphocytes % 15.8 L, Monocytes % 10.1 H, Eosinophils % 4.5, Basophils % 0.7, Absolute Granulocytes 3.8, Absolute Lymphocytes 0.9 L, Absolute Monocytes 0.5, Absolute Eosinophils 0.2, Absolute Basophils 0, PUBS MCHC 31.8 L Microbiology 03/03 906 BODY FLUID: Body Fluid Culture - COLB 03/03 906 BODY FLUID: Gram Stain - COLB Assessment/Plan Assessment: Patient is 76 year old gentleman with past medical history significant for congestive heart failure, COPD not on home oxygen, history of gout and hyperlipidemia, hypothyroidism and lung tumor status post resection in 1999 came in with chief complaint of worsening lower extremity edema and abnormal labs most likely hypernatremia and hypokalemia. Patient was admitted on telemetry floor and we will address following problems. Problem #1 worsening bilateral lower extremity edema which could be multifactorial due to his underlying CHF and also his hepatic cirrhosis might be playing a role. * Cardiology consultation was placed and appreciated * Echocardiogram showed 55% left ventricular ejection fraction. Markedly enlarged right ventricle with normal wall thickness. * Given his hypernatremia which could be due to high dose of Lasix at home we has Lasix for 2 days. He was started on Aldactone 50 mg daily and we will discharge him on Aldactone 50 mg and Lasix 20 mg daily at home * Supplemental oxygen to keep oxygen saturation more than 90%. On ambulation patient dropped his oxygen saturation to 78% and required supplemental oxygen to keep oxygen saturation more than 90%. His hypoxia is also contributing in his worsening lower extremity edema. Patient was counseled multiple times by multiple providers but he was adamantly refusing for home oxygen. In case he would go home he has to sign AMA. As his discharge want be safe without home oxygen. * Bilateral lower extremity Doppler ultrasound showed right-sided DVT and he was started on full dose anticoagulation with Lovenox. Which was transitioned to daily Eliquis which patient was instructed to start with 10 mg daily for 7 days and then 5 mg twice a day. Problem #2 history of COPD and lung tumor status post right ?lobectomy. * We'll continue supplemental oxygen Problem #3 chronic issues, hyperlipidemia, gout, hypothyroidism and insomnia * We will continue his home medications Problem #4 liver cirrhosis and ascites on CT abdomen * GI consultation was placed and appreciated. Most of his GI workup can be done as outpatient. Patient would be follow-up with Dr. andre as outpatient. * Hepatitis panel came back negative. * Patient was scheduled this morning for diagnostic paracentesis but there was no significant amount of ascites fluid to have safe procedure and was sent back to floor.. 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 His PCP was updated and he would need surgical evaluation as outpatient. Problem List: 1. Acute on chronic congestive heart failure 2. Porcelain gallbladder 3. COPD (chronic obstructive pulmonary disease) 4. DVT (deep venous thrombosis) Pain Ratin Pain Location: Not applicable Pain Goal: Remain pain free Pain Plan: Tylenol Tomorrow's Labs & Rationales: cbc and bep Nicole EPPS,Nahid 03/03/17 1146: Attending MD Review Statement Attending Statement Attending MD Statement: examined this patient, discuss w/resident/PA/INJECTOR ASSEMBLER, agreed w/resident/PA/INJECTOR ASSEMBLER, reviewed EMR data (avail), discussed with nursing, discussed with case mgmt, amended to note Attending Assessment/Plan: Patient seen and examined. Resting comfortably unless in acute distress. No issues overnight. No new complaints this morning. At rest on room air pulse oximetry was 84%. Improves when placed back on oxygen supplementation. Patient admits that he gets short of breath with activity and that this is chronic for him for years. He states that his condition is unchanged for several years. He refuses to go home on oxygen supplementation stating that she is able to pace himself. Despite repeated counseling he declined to go home on oxygen supplementation. I did explain to him the risk of not utilizing oxygen supplementation. General appearance: Well-developed, not in acute distress. Heart: S1-S2 regular Lungs: Fair entry bilaterally with no added sounds Abdomen: Soft, nontender with normal bowel sounds Extremities bilateral lower extremity edema. R>L. Paracentesis was attempted but unsuccessful due to small volume. CT scan done yesterday shows no acute abdominal pathology. He does shave porcelain gallbladder. He did raise concern for worsening pleural effusion and pericardial effusion noted on previously noted. Problems: 1. Right lower extremity deep vein thrombosis. 2. Hypoxic respiratory failure; likely chronic due to advanced COPD, chronic diastolic dysfunction, pulmonary hypertension. 3. Cirrhosis; query etiology. He does have distant history of alcohol abuse. Viral hepatitis panel is negative. 4. Porcelain gallbladder Plan: -Patient is adamant on leaving the hospital today. He is refusing to be discharged on oxygen supplementation despite repeated counseling. I did call and speak with his primary care provider who also encouraged the patient to go home on oxygen supplementation. Patient however remained adamant despite counseling with the risk of worsening shortness of breath, chest pain, loss of consciousness and even . -He is adamant on leaving the hospital today. He reports that he has different things to take care of at home. He reports that he has money in his house that he has to get to. I did advise him to contact other friends or family to export sales assistant however he is not willing to do so. -He is leaving the hospital AGAINST MEDICAL ADVICE when aware of the risk involved. -He has been advised to follow-up with his primary care provider as an outpatient. We have also recommended outpatient follow-up with the pulmonology service. -He has been counseled on the need for anticoagulant therapy. He is being discharged on Eliquis. He has been advised about the bleeding complications associated with this medication. -He has been advised to follow-up with the gastrologist with an outpatient. He will need a liver biopsy to be coordinated in the future to determine the etiology of his cirrhosis. -We are resuming diuresis with Lasix at a lower dose of 20 mg daily. We are also starting Aldactone. We will administer a dose of Lasix 20 mg IV prior to discharge. Further titration of his diuretics will be carried out by his primary care provider. -Patient is requesting a sleep aid. He is already on Ambien at home but he states that this is ineffective. Will add melatonin to his regimen. -Patient to follow-up with his primary care provider for referral to general surgeon for evaluation of his porcelain gallbladder. Patient to undergo other age-appropriate cancer screening with his primary care provider.
[2017-03-03 08:10] LABS: ABSOLUTE BASOPHIL COUNT 0 /CUMM (0.0-0.2); ABSOLUTE EOSINOPHIL COUNT 0.2 /CUMM (0.0-0.7); ABSOLUTE GRANULOCYTE CT 3.8 /CUMM (1.4-6.5); ABSOLUTE LYMPH COUNT 0.9 /CUMM (1.2-3.4); ABSOLUTE MONOCYTE COUNT 0.5 /CUMM (0.10-0.60); BASOPHIL % 0.7 % (0.0-2.0); EOSINOPHIL % 4.5 % (0-5); GRANULOCYTE % 68.9 % (42.2-75.2); MEAN CORPUSCULAR HGB 27.9 PG (27.0-31.0); MEAN CORPUSCULAR HGB CONC 31.8 G/DL (33.0-37.0); MEAN CORPUSCULAR VOLUME 87.8 FL (80.0-94.0); MEAN PLATELET VOLUME 8.6 FL (7.4-10.4); PLATELET COUNT 223 /CUMM (130-400); RBC DISTRIBUTION WIDTH 19.3 % (11.5-14.5); RED BLOOD CELL CT 4.55 /CUMM (4.70-6.10); WHITE BLOOD CELL COUNT 5.5 /CUMM (4.8-10.8)
[2017-03-03 09:26] LABS: PT 12.8 SEC (9.4-12.5)
[2017-03-03] MEDS ORDERED: D3-5050000 UNIT PO (11:12)
[2017-03-03] MEDS ORDERED: LEVOTHYROXINE88 MCG PO (11:13)
[2017-03-03] MEDS ORDERED: FUROSEMIDE40 M1 PO (11:14)
[2017-03-03] MEDS ORDERED: SIMVASTATIN40 M1 PO (11:15)
[2017-03-03] MEDS ORDERED: ULORIC40 M1 (11:17)
[2017-03-03] MEDS ORDERED: ULORIC80 M1 PO (11:22)
[2017-03-03] MEDS ORDERED: ZOLPIDEM TARTRAT5 M1 PO (11:22)
[2017-03-03] MEDS ORDERED: MULTIVITAMINS1 EAC9 PO (11:23)
[2017-03-03] MEDS ORDERED: ASPIRIN81 M4 PO (11:23)
[2017-03-03] MEDS ORDERED: FISH OIL 1,0001 EACH PO (11:24)
[2017-03-03] MEDS ORDERED: SPIRIVA18 MCG INH (11:25)
[2017-03-03] MEDS ORDERED: PROVENTIL HFA6.7 GM INH (11:26)
[2017-03-03] MEDS ORDERED: MELATONIN5 M7 PO (11:56)
[2017-03-03] MEDS ORDERED: LASIX20 M1 PO (11:56)
[2017-03-03] MEDS ORDERED: ALDACTONE50 M1 PO (11:56)
--- NOTE | 2017-03-03 12:00 | Patient Discharge Instructions ---
Discharge Instructions General Discharge Information You were seen/treated for: DVT chf exacerbation bilateral lower extremity edema cirrhosis Ascites Special Instructions: PLEASE FOLLOW UP WITH YOUR pcp IN a week Please repeat BMP in A WEEK Please follow up with cardiology in a week PLEASE FOLLOW UP WITH GASTROENTROLOGY IN 1-2 WEEKS PLEASE TAKE MEDICATIONS PRESCRIBED Diet Recommended Diet: Heart Healthy Activity Additional ACTIVITY Info: as tolerated Acute Coronary Syndrome Inclusion Criteria At DC or during hospital stay patient has or had the following: ACS DIAGNOSIS No Discharge Core Measures Meds if any: Prescribed or Continued at Discharge Meds if any: NOT Prescribed or Continued at Discharge Congestive Heart Failure Inclusion Criteria At DC or during hospital stay patient has or had the following: CHF DIAGNOSIS Yes Discharge Core Measures Meds if any: Prescribed or Continued at Discharge Meds if any: NOT Prescribed or Continued at Discharge Cerebrovascular accident Inclusion Criteria At DC or during hospital stay patient has or had the following: CVA/TIA Diagnosis No Discharge Core Measures Meds if any: Prescribed or Continued at Discharge Meds if any: NOT Prescribed or Continued at Discharge Venous thromboembolism Inclusion Criteria VTE Diagnosis Yes VTE Type Deep Venous Thrombosis VTE Confirmed by (Test) EXT BILATERAL VENOUS DOPP Discharge Core Measures - Per Current guidelines, there needs to be overlap - treatment for the first 5 days of Warfarin therapy. - If discharged on Warfarin prior to 5 days of - overlap therapy, the patient will need to be - assessed for post discharge needs including - *Post discharge parental anticoagulation - *Warfarin and/or parental anticoagulation education - *Follow up date to check INR post discharge At least 5 days overlap therapy as Inpatient Yes Meds if any: Prescribed or Continued at Discharge Note: Overlap Therapy is Warfarin and Anticoagulant Meds if any: NOT Prescribed or Continued at Discharge
--- NOTE | 2017-03-03 12:00 | ULTRASOUND REPORT ---
EXAMINATION: US ABDOMEN LIMITED CLINICAL INFORMATION: Bilateral leg edema. Evaluation for paracentesis. COMPARISON: CT abdomen and pelvis 03/02/2017. TECHNIQUE: Real-time ultrasound imaging of the abdomen was performed to assess for ascites fluid. FINDINGS: Ultrasound imaging of the abdomen was performed. There is trace ascites in the right upper quadrant. No additional fluid pockets are appreciated. A safe window for diagnostic paracentesis is not present. No paracentesis was performed. IMPRESSION: Trace ascites in the right upper quadrant. No safe window for diagnostic paracentesis. Findings were discussed with Iza Valentine at 10:30 AM on 03/03/2017.
--- NOTE | 2017-03-03 12:00 | PN- Cardiology ---
Subjective Subjective: The patient is awake, alert The events of the last 24 hours as well as telemetry were reviewed. Review of Systems: The review of systems is negative for chest pains, palpitations nor lightheadedness. The remainder of the 14 point review of systems is noncontributory with the exception of above. Objective Vital Signs and I&Os Vital Signs Date Time Temp Pulse Resp B/P B/P Pulse O2 O2 Flow FiO2 Mean Ox Delivery Rate 03/03 0808 95 Nasal 2.0L Cannula 03/03 0609 97.5 84 18 110/60 93 03/03 0000 Nasal 2.0L Cannula 03/02 2300 98.3 90 18 142/72 93 Nasal 2.0L Cannula 03/02 2106 93 Nasal 2.0L Cannula 03/02 1600 97 Nasal 2.0L Cannula 03/02 1505 97.7 86 16 120/76 92 Intake & Output 03/03 1600 03/03 0800 03/03 0000 03/02 1600 03/02 0800 03/02 0000 Intake Total 110 400 400 150 500 Output Total 225 750 350 500 600 Balance -115 -350 50 -350 -100 Intake, IV 10 Intake, Oral 100 400 400 150 500 Number 1 0 Bowel Movements Output, Urine 225 750 350 500 600 Patient 199 lb 200 lb Weight Weight Chair scale Bed scale Measurement Method Physical Exam: General: Nontoxic, no apparent distress. HEENT: Sclera and conjunctiva within normal limits, without xanthelasmas. Neck: Carotids 2+ without bruits. Respiratory: Clear to auscultation, air movement is good, without accessory respiratory muscle use. Heart: Regular rate and rhythm, 2/6 systolic ejection murmur at left sternal border, without JVD. Abdomen: Soft, nontender, no masses, normoactive bowel sounds. Extremities: Without clubbing, cyanosis, 3 mm of edema in both lower extremities (improved) sees.. Neuro: Nonfocal exam, strength, 5 out of 5 Skin: Within normal limits without lesions. Psych: Mood and affect: Normal Current Medications: Current Medications Sig/Bridger Start time Last Medication Dose Route Stop Time Status Admin Albuterol Sulfate 3 ML BID 03/01 2200 AC 03/03 INH 0806 Apixaban 10 MG Q12H 03/02 1800 CAN PO 03/09 0601 Atorvastatin Calcium 20 MG 1700 03/01 1700 AC PO Budesonide/ 2 PUF BID 02/28 2200 AC 03/03 Formoterol Fumarate INH 1114 Enoxaparin Sodium 40 MG DAILY@03/02 170 DC SC Enoxaparin Sodium 100 MG DAILY@03/02 1700 AC 03/02 SC 1728 Enoxaparin Sodium 40 MG DAILY@03/02 1700 AC 03/02 SC 1727 Enoxaparin Sodium 140 MG DAILY 03/02 1445 CAN SC Enoxaparin Sodium 100 MG DAILY@03/01 1700 DC 03/01 SC 1858 Ipratropium [place] 2.5 ML BID 03/01 220 AC 03/03 INH 0807 Ipratropium [place] 2.5 ML Q6-PRN PRN 02/29 2144 AC INH Levothyroxine Sodium 0.075 MG DAILY AC 03/01 0700 AC 03/03 PO 0532 Spironolactone 50 MG DAILY 03/02 1730 AC 03/03 PO 1111 Trazodone HCl 50 MG AT BEDTIME NEED.. 02/28 214 AC 03/02 PO 2220 Zolpidem Tartrate 5 MG AT BEDTIME 02/28 2199 AC 03/02 PO 2220 Results Last 48 Hrs of Labs/Mics: Laboratory Tests 03/03/17 0845: PT 12.8 H, INR 1.22 H 03/03/17 0611: Anion Gap 8, Estimated GFR 59 L, BUN/Creatinine Ratio 21.7, CBC w Diff NO MAN DIFF REQ, RBC 4.55 L, MCV 87.8, MCH 27.9, RDW 19.3 H, MPV 8.6, Gran % 68.9, Lymphocytes % 15.8 L, Monocytes % 10.1 H, Eosinophils % 4.5, Basophils % 0.7, Absolute Granulocytes 3.8, Absolute Lymphocytes 0.9 L, Absolute Monocytes 0.5, Absolute Eosinophils 0.2, Absolute Basophils 0, PUBS MCHC 31.8 L 03/02/17 0641: Anion Gap 8, Estimated GFR 49 L, BUN/Creatinine Ratio 20.0, Iron 51, TIBC 360, Ferritin 15.2 L, CBC w Diff NO MAN DIFF REQ, RBC 4.65 L, MCV 88.0, MCH 27.9, RDW 19.7 H, MPV 8.7, Gran % 70.2, Lymphocytes % 15.9 L, Monocytes % 9.4 H, Eosinophils % 4.2, Basophils % 0.3, Absolute Granulocytes 4.1, Absolute Lymphocytes 0.9 L, Absolute Monocytes 0.5, Absolute Eosinophils 0.2, Absolute Basophils 0, PUBS MCHC 31.7 L, Hepatitis A IgM Ab NONREACTIVE, Hep Bs Antigen NONREACTIVE, Hep Bs Antibody NONREACTIVE, Hep B Core IgM Ab Conf NONREACTIVE, Hepatitis C Antibody NONREACTIVE, HIV 1&2 Ab Western Blot NONREACTIVE Assessment/Plan Assessment/Plan #1 Bilateral leg edema. He has evidence of right deep vein thrombosis. Edema may be multifactorial. He has severe COPD and pulmonary hypertension with right ventricular enlargement and dysfunction. He is also suspected to have ascites related to cirrhosis of the liver. #2. Severe COPD #3. History of lobectomy for lung tumor in the past. #4. Deep vein thrombosis. Lovenox. Going to be transitioned to oral anticoagulants The patient is currently on Aldactone as a diuretic, and I would discharge him home the same. Follow-up of his electrolytes including potassium and sodium will be maintained as an outpatient. Continue telemetry? No
[2017-03-03] MEDS ORDERED: ELIQUIS5 M1 PO (12:01)
--- NOTE | 2017-03-07 18:05 | Discharge Summary ---
Visit Information Visit Dates Admission Date: 03/01/17 Discharge Date: 03/03/17 Hospital Course Course Attending Physician: Nahid Rivera MD Primary Care Physician: Adalberto Tafoya MD Consulting Request: Consulting Specialty: Cardiology Consulting Physician: Juancarlos Morley MD Hospital Course: Patient is 76-year-old male with past medical history significant for congestive heart failure, COPD not on home oxygen, hyperlipidemia, gout, hypothyroidism, status post lung mass resection was sent in by his PCP with worsening lower extremity edema and abnormal labs. Patient was admitted on telemetry floor and following issues were addressed Problem #1Bilateral Lower Extrimity Swelling; Due to DVT and underling HFpEF and Cirrhosis Patient had worsening lower extremity edema despite escalating doses of Lasix by his PCP. He was also found to have hyponatremia and hypokalemia likely due to his agggressive diuresis. HHe was also noted to have renal insufficiency. He was evalauted in the ER and given lasix intravenously for presumed CHF exacerbation. On evaluation on the medical floor doppler ultrasound was done that revealed right lower extremity DVT. He was strted on lovenox and eventually switched to Eliquis for anticoagulation therapy. Lasix was held on the medical floor due to his hypernatremia and renal insufficiency. After evaluation by the GI servie he was eventually strted on Aldactone due to his cirrhosis. Cardiac echo showed a normal ejection fraction mild septal dyssynchrony , markedly enlarged right ventricle and severe right ventricular systolic dysfunction. Problem #2 ascites, cirrhosis and transaminitis Patient was also found to have new ascites and liver cirrhosis. GI evaluation was requested. As his ascites fluid was very minute in amount was not able to tap for diagnostic paracentesis safely by IR service. Calcification of gallbladder wall versus cholelithiasis was also noticed on imaging study. 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 His PCP was updated. Hepatic panel came back negative. Patient was instructed to follow-up with gastroenterology for further workup. Problem #3 Hypoxic (likely Chronic) Respiratory Failure due to COPD. Patient also has Pulmonary Hypertension, HFpEF and history of lung tumor status post right lobectomy Patient was hypoxic on ambulation and dropped his oxygen saturation to 78 and was counseled on the need for oxygen supplementation. He PCP was also contacted to assist in decision making. Patient however remained adamant on not going home on oxygen supplementation despite understanding the risks. He was discharged from the hospital off oxygen against medical advice. CTA could not be done to rule out PE due to renal insuficiency. He was started on anticoagulation for his DVT. Complications: none Allergies: Coded Allergies: atorvastatin (From LIPITOR) (Intermediate, MUSCLE PAIN 03/02/17) Significant Procedures: MONALISA ARENAS Age: 76 : 1940 Gender: M Exam Date: 03/01/2017 09:00 Exam Location: [address] [place] [address] Ht (in): 70 Wt (lb): 202 BSA: 2.15 BP: 112 / 62 Ordering Physician: Adrian Cintron MD Referring Physician: Adrian Cintron MD Technologist: Oli Kwan [facility] Room Number: 177-1 Indications: HEART FAILURE Rhythm: Technical Quality: good FINDINGS Left Ventricle Normal LV chamber size and wall thickness. The estimated LVEF is 55%. There is mild septal dyssynchrony as well as diastolic septal flattening, which may be consistent with right ventricular volume overload. Right Ventricle The right ventricle is markedly enlarged with overall normal wall thickness. There is severe right ventricular systolic dysfunction. Right Atrium Moderately dilated right atrium Left Atrium Normal-sized left atrium The interatrial septum is mildly aneurysmal with no significant transseptal flow by color Doppler. Mitral Valve Mildly thickened and calcified mitral valvular leaflets and annulus. There is trace to mild mitral regurgitation. Aortic Valve Moderately calcified, trileaflet aortic valve. There is no significant aortic stenosis. There is no significant aortic regurgitation. Tricuspid Valve Mildly thickened and calcified tricuspid valve leaflets with no significant stenosis. There is mild tricuspid regurgitation. There is severe pulmonary hypertension with an estimated PA systolic pressure of approximately 65 mmHg or greater. Pulmonic Valve Grossly normal appearing pulmonic valve Pericardium Grossly normal appearing pericardium Great Vessels Grossly normal appearing great vessels. The IVC is dilated and does not collapse with inspiration. CONCLUSIONS Normal LV chamber size and wall thickness. The estimated LVEF is 55%. There is mild septal dyssynchrony as well as diastolic septal flattening, which may be consistent with right ventricular volume overload. The right ventricle is markedly enlarged with overall normal wall thickness. There is severe right ventricular systolic dysfunction. There is trace to mild mitral regurgitation. There is severe pulmonary hypertension with an estimated PA systolic pressure of approximately 65 mmHg or greater. Shawn Felipe M.D. (Electronically Signed) Final Date: 01 March 2017 12:28 MEASUREMENTS (Male / Female) Normal Values 2D ECHO LV Diastolic Diameter PLAX 4.6 cm 4.2 - 5.9 / 3.9 - 5.3 cm LV Systolic Diameter PLAX 3.8 cm 2.1 - 4.0 cm LV Fractional Shortening PLAX 17.4 % 25 - 46 % LV Ejection Fraction 2D Teich 36.4 % IVS Diastolic Thickness 1.1 cm LVPW Diastolic Thickness 0.9 cm LV Relative Wall Thickness 0.4 RV Internal Dim ED PLAX 4.3 cm 1.9 - 3.8 cm LVOT Diameter 1.9 cm Aortic Root Diameter 3.5 cm LA Systolic Diameter LX 3.3 cm 3.0 - 4.0 / 2.7 - 3.8 cm Ascending Aorta Diameter 3.1 cm DOPPLER AV Peak Velocity 95.1 cm/s AV Peak Gradient 3.6 mmHg AV Mean Velocity 67.3 cm/s AV Mean Gradient 2.0 mmHg AV Velocity Time Integral 19.4 cm LVOT Peak Velocity 70.7 cm/s LVOT Peak Gradient 2.0 mmHg LVOT Mean Velocity 41.7 cm/s LVOT Mean Gradient 1.0 mmHg LVOT Velocity Time Integral 11.3 cm LVOT Stroke Volume 32.0 cm AV Area Cont Eq vti 1.7 cm AV Area Cont Eq pk 2.1 cm MV Peak Velocity 89.6 cm/s MV Peak Gradient 3.2 mmHg MV Mean Velocity 57.5 cm/s MV Mean Gradient 2.0 mmHg Mitral E Point Velocity 47.4 cm/s Mitral A Point Velocity 69.6 cm/s Mitral E to A Ratio 0.7 MV PHT Velocity 71.9 cm/s MV Deceleration [place] 584.0 cm/s MV Pressure Half Time 36.9 ms MV Area PHT 6.0 cm MV Deceleration Time 187.0 ms TR Peak Velocity 362.0 cm/s TR Peak Gradient 52.4 mmHg Right Atrial Pressure 10.0 mmHg Pulmonary Artery Systolic Pressu 62.4 mmHg Right Ventricular Systolic Press 62.4 mmHg PV Peak Velocity 51.0 cm/s PV Peak Gradient 1.0 mmHg PV Mean Velocity 38.5 cm/s PV Mean Gradient 1.0 mmHg PV Velocity Time Integral 9.5 cm LV E' Lateral Velocity 7.0 cm/s Mitral E to LV E' Lateral Ratio 6.8 LV E' Septal Velocity 3.7 cm/s Mitral E to LV E' Septal Ratio 12.8 DICTATED BY: Shawn Felipe MD Pertinent Lab Results: SERVICE DATE: 03/01/17- EXAM TYPE: US - US-EXT BILAT VENOUS DOPPLER EXAMINATION: US TRIPLEX OF LOWER EXTREMITIES, BILATERAL CLINICAL INFORMATION: Bilateral lower extremity edema evaluate for DVT. COMPARISON: There are no prior studies for comparison. TECHNIQUE: Color-flow triplex imaging with spectral analysis and compression Doppler were performed on the lower extremities. FINDINGS: RIGHT Lower Extremity: Incomplete compressibility is noted in the region of the proximal right femoral vein which extends to the mid and lower femoral veins, however flow is demonstrated within the proximal mid and distal femoral veins, approximately 50% of the lumen appears patent in the proximal femoral vein which tapers to less than 10% of the distal femoral vein. Color flow and respiratory variation is demonstrated within the popliteal vein consistent with reconstitution however the calf veins are not well visualized due to presence of substantial edema. The posterior tibial peroneal trunk is identified and appears to be patent. LEFT Lower Extremity: Respiratory variation, normal compression and augmented flow are noted throughout the lower extremities. The visualized common femoral vein, superficial femoral vein, profunda femoral vein, popliteal vein and midcalf peroneal and posterior tibial venous segments show no evidence of deep venous thrombosis. There is no Guillen's cyst noted in either left or right popliteal fossa.. IMPRESSION: 1. Noncompressibility in the proximal mid and distal right femoral vein. Intraluminal flow is approximately 50% at the proximal femoral vein decreasing 2 less than 10% at the distal right femoral vein. As noted there is apparent reconstitution with flow demonstrated in the popliteal fossa. The findings are consistent for DVT extending from the proximal to distal right femoral vein, as described. 2. Normal left lower extremity triplex scan without evidence of deep venous thrombosis involving the left lower extremity. The findings were discussed directly with Dr. Rice, at 2:51 PM on 03/01/2017. SERVICE DATE: 03/02/17- EXAM TYPE: CAT - CT ABD & PELVIS W/ ORAL CONTRA EXAMINATION: CT ABDOMEN AND PELVIS WITH ORAL CONTRAST CLINICAL INFORMATION: Cirrhosis. Abdominal mass. COMPARISON: None TECHNIQUE: Multidetector volumetric imaging was performed from the superior aspect of the liver through the pubic symphysis following administration of oral contrast. Sagittal and coronal reformatted images were obtained on the technologist's workstation. DLP: 540.21 mGy-cm FINDINGS: LUNG BASES: Bilateral pleural effusions. The volume is small on the right and moderate on the left. Emphysematous lucencies of lung. There is a small pericardial effusion. Measures 0.8 cm transverse, sagittal image 63. LIVER, GALLBLADDER, AND BILIARY TREE: Nodular contour of the liver consistent with cirrhosis. Right lobe of liver measures 15 cm superior inferior. No focal liver lesion. No intrahepatic bile duct dilatation. There is linear calcification at the fundus of the gallbladder. This is due to calcification of the wall of the gallbladder or small gallstones. There is a small calcification also near the mid body of the gallbladder as well. No bile duct dilatation. PANCREAS: Fatty atrophy of the pancreas. No pancreatitis. No inflammation or mass of pancreas. SPLEEN: Spleen measures 10.1 cm superior inferior. ADRENAL GLANDS: Unremarkable. KIDNEYS AND URETERS: The kidneys are normal in size, shape, and attenuation. No hydronephrosis, hydroureter, or calculi seen. No perinephric stranding. BLADDER: Unremarkable. GASTROINTESTINAL TRACT: Mild diverticulosis of sigmoid left colon. No diverticulitis. No acute change of the bowel. No bowel obstruction. No bowel wall thickening or edema. Moderate volume of stool throughout the colon. The appendix is normal. The small-bowel loops are unremarkable. MESENTERY: Moderate volume of abdominal ascites. No mesenteric mass. No inflammation or abscess. ABDOMINAL WALL: Small bilateral fat-containing inguinal hernias. There is generalized anasarca in the subcutaneous fat. LYMPH NODES: Normal. VASCULAR: Atherosclerotic vascular wall calcifications of aorta and iliac vessels without aneurysm. PELVIC VISCERA: Prostate measures 4.7 cm transverse. OSSEOUS STRUCTURES: Multilevel degenerative spondylosis of spine with endplate spur, vacuum disc phenomena and facet joint arthrosis. IMPRESSION: 1. Bilateral pleural effusions. 2. Small pericardial effusion. 3. Moderate volume of abdominal ascites. 4. Generalized anasarca. 5. Cirrhosis of liver. 6. No mesenteric mass. 7. Calcification of the gallbladder wall versus cholelithiasis. Disposition Summary Disposition Principal Diagnosis: DVT Hypoxic (Likely Chronic) Respiratory Failure Additional Diagnosis: Chronic Diastolic Heart Failure Pulmonary Hypertension COPD. Discharge Disposition: home or self care Discharge Instructions General Discharge Information Code Status: Full Code Patient's Diet: HEART HEALTHY DIET Patient's Activity: as tolerated Follow-Up Instructions/Appts: TOLERATED Medications at Discharge Discharge Medications: Stop taking the following medications: Furosemide (Furosemide) 40 MG TABLET ORAL TWICE DAILY Qty = 120 Continue taking these medications: Cholecalciferol (Vitamin D3) (D3-50) 50,000 UNIT CAPSULE 1 Capsule ORAL ONCE A WEEK Qty = 4 Comments: Last Taken: NOT GIVEN IN HOSPITAL Time: Levothyroxine Sodium (Levothyroxine Sodium) 88 MCG TABLET 1 Tablet ORAL DAILY Qty = 30 Comments: Last Taken: 03/03/17 Time: 5:30 AM Simvastatin (Simvastatin*) 40 MG TABLET 1 Tablet ORAL DAILY Qty = 90 Comments: Last Taken: NOT GIVNE IN HOSPITAL Time: Febuxostat (Uloric) 80 MG TABLET 1 Tablet ORAL DAILY Comments: Last Taken: NOT GIVEN IN HOSPITAL Time: Zolpidem Tartrate (Zolpidem Tartrate) 5 MG TABLET 1 Tablet ORAL AT BEDTIME as needed for SLEEP Qty = 30 Comments: Last Taken: NOT GIVEN IN HOSPITAL Time: Multiple Vitamin (Multivitamins) 1 EACH TABLET 1 Tablet ORAL DAILY Comments: Last Taken: NOT GIVEN IN HOSPITAL Time: Aspirin (Aspirin*) 81 MG TAB.CHEW 1 Tablet ORAL DAILY Comments: Last Taken: NOT GIVEN IN HOSPITAL Time: [place]-3 Fatty Acids/Fish Oil (Fish Oil 1,000 MG Capsule) 340 MG-1,000 MG CAPSULE 1 Tablet ORAL Every Day Comments: Last Taken: NOT GIVEN IN HOSPITAL Time: Tiotropium [place] (Spiriva) 18 MCG CAP.W.DEV 1 Capsule Inhale through mouth DAILY Comments: Last Taken: NOT GIVEN IN HOSPITAL Time: Albuterol Sulfate (Proventil Hfa) 90 MCG HFA.AER.AD 2 PUFF Inhale through mouth 4 times daily as needed as needed for RESPIRATORY Comments: Last Taken: 03/03/17 Time: 8:00 AM Start taking the following new medications: Furosemide (Lasix) 20 MG TABLET 1 Tablet ORAL DAILY Qty = 30 No Refills Comments: Last Taken: 03/03/17 Time: 1:15 PM Melatonin (Melatonin) 5 MG TABLET 1 Tablet ORAL AT BEDTIME Qty = 30 Refills = 2 Comments: Last Taken: NOT GIVEN IN HOSPITAL Time: Spironolactone (Aldactone) 50 MG TABLET 1 Tablet ORAL DAILY Qty = 30 No Refills Comments: Last Taken: 03/03/17 Time: 11:10 AM Apixaban (Eliquis) 5 MG TABLET 2 Tablet ORAL TWICE DAILY Qty = 60 No Refills Instructions: take 2 tab twice a day for 7 days and then 1 tab twice a day Comments: Last Taken: 03/03/17 Time: 1:15 PM Copies To: Lottie EPPS,Adalberto Attending MD Review Statement Documenting Attending: Nahid Rivera MD Other Findings: Please see details above.
== END 2017-03-03 17:25 | disposition left against medical advice (07) | DRG 433 ==
LOC: ERH 12:21 → ERHI 20:01 → ENRESERV 20:29 → ENTRNSPT 21:15 → EDTRNSPTSTS 21:16 → 1NO 21:35 → CMPTRNSPT 21:52 → 1NO 03-01 08:00 → ENPENDDIS 03-03 14:53 → 1NO 03-03 17:25
PROVIDERS: Emergency Medicine; Internal Medicine; Radiology Vascular & Interventional Radiology; Student in an Organized Health Care Education/Training Program
DX: K74.60 Unspecified cirrhosis of liver (principal); I82.411 Acute embolism and thrombosis of right femoral vein; J96.11 Chronic respiratory failure with hypoxia; E87.0 Hyperosmolality and hypernatremia; I27.29 Other secondary pulmonary hypertension; R18.8 Other ascites; E87.1 Hypo-osmolality and hyponatremia; J44.1 Chronic obstructive pulmonary disease with (acute) exacerbation; I50.32 Chronic diastolic (congestive) heart failure; I34.0 Nonrheumatic mitral (valve) insufficiency; E78.5 Hyperlipidemia, unspecified; M10.9 Gout, unspecified; E03.9 Hypothyroidism, unspecified; Z87.891 Personal history of nicotine dependence; F10.11 Alcohol abuse, in remission; G47.00 Insomnia, unspecified; E61.1 Iron deficiency; K82.8 Other specified diseases of gallbladder; T50.1X5A Adverse effect of loop [high-ceiling] diuretics, initial encounter; Y92.239 Unspecified place in hospital as the place of occurrence of the external cause; I50.811 Acute right heart failure; R63.4 Abnormal weight loss; R01.1 Cardiac murmur, unspecified; I87.2 Venous insufficiency (chronic) (peripheral); I44.0 Atrioventricular block, first degree; E87.6 Hypokalemia
CPT/HCPCS: 1263; 1328; 1425; 1530; 1748; 2000; 6020; 87075; 36415; 71046; 74176; 82436; 87389; 87804; 87804-59; 93005; 93010; 93306; 93970; 96374; G0378; J1650; J1940; J3490